=== PATIENT | female | born 1960 | race Caucasian/White ===

== ENCOUNTER 2019-08-27 10:59 | Emergency (ER) | payer OTHER ==
[2019-08-27] MEDS ORDERED: MAGNE/ALUM HYDROXD 30 ML UCUP ONE (11:29)
[2019-08-27] MEDS ORDERED: LIDOCAINE VISCOUS 2% SOLN 15 ML UDC ONE (11:30)
[2019-08-27] MEDS ORDERED: FAMOTIDINE 20 MG/2 ML VIAL IV ONE (11:30)
[2019-08-27 11:58] LABS: Absolute Lymphocytes (CBC) 1.4 K/uL (0.7-4.9); Basophils % 0.8 % (0-1.3); Hematocrit 43.5 % (36.0-45.0); Lymphocytes % 22.4 % (15.3-44.8); RBC Red Blood Cell Count 4.56 M/uL (3.86-4.86)
--- NOTE | 2019-08-27 12:05 | RAD REPORT ---
EXAM DESCRIPTION: CTAbdomen Pelvis W Contrast - 08/27/2019 11:55 am CLINICAL HISTORY: Abdominal pain. NAUSEA COMPARISON: No comparisons TECHNIQUE: Biphasic CT imaging of the abdomen and pelvis was performed with 100 ml non-ionic IV cont rast. All CT scans are performed using dose optimization technique as appropriate and may include automated exposure control or mA/KV adjustment according to patient size. FINDINGS: The lung bases are clear.Small hiatal hernia. The liver, spleen, pancreas, adrenal glands and kidneys are within normal limits. No bowel obstruction, free air, free fluid or abscess. Mild sigmoid diverticulosis coli without diver ticulitis. The appendix is normal. No evidence of significant lymphadenopathy. No suspicious bony findings. IMPRESSION: Small hiatal hernia. Sigmoid diverticulosis without diverticulitis.
[2019-08-27 12:13] LABS: Urine Blood TRACE (NEG); Urine Glucose NEGATIVE (NEG); Urine Protein NEGATIVE (NEG); Urine Specific Gravity 1.025 (1.005-1.030); Urine pH 7.5 (5.0-7.0)
[2019-08-27 12:16] LABS: Urine Bacteria <20 /HPF (<20); Urine Culture Reflex Order NOT NEEDED; Urine RBC <5 /HPF (NONE SEEN)
[2019-08-27 12:17] LABS: Bilirubin Direct 0.1 mg/dL (0-0.2); Bilirubin Total 0.6 mg/dL (0.2-1.0); Protein, Total 7.7 g/dL (6.4-8.2)
--- NOTE | 2019-08-27 12:33 | ER ---
Nurse's Notes [facility] Name: Marely Choi Age: 58 yrs Sex: Female : 1960 Arrival Date: 08/27/2019 Time: 11:05 Bed 8 Private MD: Al Nelson H Diagnosis: Gastritis, unspecified, without bleeding Presentation: 08/26 11:18 Chief complaint: Patient states: Epigastric burning and nausea, denies fever,vomiting, ph or diarrhea. Coronavirus screen: Patient denies a cough. Patient denies shortness of breath or difficulty breathing. Patient denies measured and/or subjective temperature greater than 100.4F prior to today's visit. Patient denies travel on a cruise ship or to a country the [facility] currently lists as an affected area. Patient denies contact with known and/or suspected case of COVID-19. Ebola Screen: No symptoms or risks identified at this time. Initial Sepsis Screen: Does the patient meet any 2 criteria? No. Patient's initial sepsis screen is negative. Does the patient have a suspected source of infection? No. Patient's initial sepsis screen is negative. Risk Assessment: Do you want to hurt yourself or someone else? Patient reports no desire to harm self or others. Onset of symptoms was August 27, 2019. 11:18 Method Of Arrival: Ambulatory ph 11:18 Acuity: MER 3 ph Historical: - Allergies: 11:23 No Known Allergies; ph - Home Meds: 11:23 hydroxychloroquine oral oral [Active]; Xeljanz oral oral [Active]; methotrexate sodium ph Oral [Active]; meloxicam oral oral [Active]; - PMHx: 11:23 Rheumatoid Arthritis; ph - PSHx: 11:23 None; ph - Immunization history:: Adult Immunizations unknown. - Social history:: Smoking status: Patient reports the use of cigarette tobacco products, smokes one-half pack cigarettes per day. - Family history:: not pertinent. - Hospitalizations: : No recent hospitalization is reported. Screenin:25 Abuse screen: Denies threats or abuse. Denies injuries from another. Nutritional ph screening: No deficits noted. Tuberculosis screening: No symptoms or risk factors identified. Fall Risk None identified. Assessment: 11:30 General: Appears in no apparent distress. comfortable, Behavior is calm, cooperative, em appropriate for age, Denies fever. Pain: Complains of pain in epigastric area Quality of pain is described as burning. Neuro: Level of Consciousness is awake, alert, obeys commands, Oriented to person, place, time, situation, Appropriate for age. Cardiovascular: Capillary refill < 3 seconds Patient's skin is warm and dry. Respiratory: Airway is patent Respiratory effort is even, unlabored, Respiratory pattern is regular, symmetrical. GI: Abdomen is flat, Bowel sounds present X 4 quads. Reports nausea, Patient currently denies vomiting. : Denies burning with urination. Derm: Skin is intact, is healthy with good turgor, Skin is pink, warm \T\ dry. Musculoskeletal: Capillary refill < 3 seconds, Range of motion: intact in all extremities. 12:40 Reassessment: Patient appears in no apparent distress at this time. Patient and/or em family updated on plan of care and expected duration. Pain level reassessed. Patient is alert, oriented x 3, equal unlabored respirations, skin warm/dry/pink. Vital Signs: 11:18 BP 116 / 80; Pulse 76; Resp 18; Temp 97.2; Pulse Ox 100% on R/A; Weight 97.98 kg; ph Height 5 ft. 6 in. (167.64 cm); 11:18 Body Mass Index 34.86 (97.98 kg, 167.64 cm) ph ED Course: 11:05 Patient arrived in ED. mr 11:05 Al Nelson DO is Private Physician. mr 11:08 Ab Taylor MD is Attending Physician. rn 11:16 Mark Osborn RN is Primary Nurse. em 11:21 Triage completed. ph 11:24 Arm band placed on Patient placed in an exam room, on a stretcher, on pulse oximetry. ph 11:25 Patient has correct armband on for positive identification. Bed in low position. Call ph light in reach. Side rails up X 1. Pulse ox on. NIBP on. Door closed. Noise minimized. Warm blanket given. Pillow given. 11:33 Urine collected: clean catch specimen, clear. mh5 11:40 Initial lab(s) drawn, by me, sent to lab. Inserted saline lock: 20 gauge in right em antecubital area, using aseptic technique. Blood collected. 11:50 Urine Dipstick--Ancillary (enter results) Sent. [facility] 11:50 Urine Microscopic Only Sent. [facility] 11:55 Abdomen In Process Unspecified. EDMS 12:32 Jey Franco MD is Referral Physician. rn 12:51 EKG done, by ED staff, reviewed by Ab Taylor MD. [facility] 13:11 No provider procedures requiring assistance completed. IV discontinued, intact, em bleeding controlled, No redness/swelling at site. Pressure dressing applied. Administered Medications: 11:42 Drug: Pepcid 20 mg Route: IVP; Site: right antecubital; em 12:40 Follow up: Response: No adverse reaction em 12:00 Drug: GI Cocktail without - (Maalox Suspension 30 ml, Lidocaine Liquid 2 % 15 em ml) Route: PO; 12:40 Follow up: Response: No adverse reaction; Marked relief of symptoms; Pain is decreased em Outcome: 12:33 Discharge ordered by MD. rn 13:11 Discharged to home ambulatory. em 13:11 Condition: good 13:11 Discharge instructions given to patient, Instructed on discharge instructions, follow up and referral plans. medication usage, Demonstrated understanding of instructions, follow-up care, medications, Prescriptions given X 1. 13:12 Patient left the ED. em Signatures: Dispatcher [employer] Bhargavi Peterson Edgar, RN RN em Nieto, Roman, MD MD rn Hall, Patricia, RN RN ph Martinez, Maria [facility]
--- NOTE | 2019-08-27 12:33 | EDPHYS ---
Physician Documentation [facility] Name: Marely Choi Age: 58 yrs Sex: Female : 1960 Arrival Date: 08/27/2019 Time: 11:05 Bed 8 Private MD: Al Nelson H ED Physician Ab Taylor HPI: 08/26 11:18 This 58 yrs old Female presents to ER via Unassigned with complaints of rn Nausea, abd burning. 11:23 The patient presents to the emergency department with nausea, abdominal pain, of the rn epigastric area. Onset: The symptoms/episode began/occurred 1 week(s) ago. Possible causes: unknown. The symptoms are aggravated by nothing. The symptoms are alleviated by nothing. Severity of symptoms: At their worst the symptoms were mild in the emergency department the symptoms are unchanged. The patient has experienced similar episodes in the past. Reports hx of acid reflux and "stomach issues", worse over last week, feeling like burning in upper abdomen, no previous gallbladder problem. No chest pain/sob. Also reports mild diarrhea and burning with urination. . Historical: - Allergies: 11:23 No Known Allergies; ph - Home Meds: 11:23 hydroxychloroquine oral oral [Active]; Xeljanz oral oral [Active]; methotrexate sodium ph Oral [Active]; meloxicam oral oral [Active]; - PMHx: 11:23 Rheumatoid Arthritis; ph - PSHx: 11:23 None; ph - Immunization history:: Adult Immunizations unknown. - Social history:: Smoking status: Patient reports the use of cigarette tobacco products, smokes one-half pack cigarettes per day. - Family history:: not pertinent. - Hospitalizations: : No recent hospitalization is reported. ROS: 11:23 Constitutional: Negative for fever, chills, and weight loss, Eyes: Negative for injury, rn pain, redness, and discharge, Cardiovascular: Negative for chest pain, palpitations, and edema, Respiratory: Negative for shortness of breath, cough, wheezing, and pleuritic chest pain, Abdomen/GI: Negative for vomiting, diarrhea, and constipation, MS/Extremity: Negative for injury and deformity, Skin: Negative for injury, rash, and discoloration, Neuro: Negative for headache, weakness, numbness, tingling, and seizure. Exam: 11:23 Constitutional: This is a well developed, well nourished patient who is awake, alert, rn and in no acute distress. Ambulatory to room without difficulty or distress. Head/Face: Normocephalic, atraumatic. Cardiovascular: Regular rate and rhythm. No pulse deficits. Respiratory: No increased work of breathing, no retractions or nasal flaring. Abdomen/GI: soft, non-tender, neg jimenez Skin: Warm, dry with normal turgor. Normal color with no rashes, no lesions, and no evidence of cellulitis. MS/ Extremity: Pulses equal, no cyanosis. Neurovascular intact. Full, normal range of motion. Equal circumference. Neuro: Awake and alert, GCS 15, oriented to person, place, time, and situation. Cerebellar exam normal. Normal gait. 12:47 ECG was reviewed by the Attending Physician. rn Vital Signs: 11:18 BP 116 / 80; Pulse 76; Resp 18; Temp 97.2; Pulse Ox 100% on R/A; Weight 97.98 kg; ph Height 5 ft. 6 in. (167.64 cm); 11:18 Body Mass Index 34.86 (97.98 kg, 167.64 cm) ph MDM: 11:08 Patient medically screened. rn 12:31 Differential diagnosis: Nonspecific abd pain, gastritis, pancreatitis, viral rn gastroenteritis, gastroenteritis. Data reviewed: vital signs, nurses notes, lab test result(s), radiologic studies, CT scan, and as a result, I will discharge patient. Counseling: I had a detailed discussion with the patient and/or guardian regarding: the historical points, exam findings, and any diagnostic results supporting the discharge/admit diagnosis, lab results, radiology results, the need for outpatient follow up, to return to the emergency department if symptoms worsen or persist or if there are any questions or concerns that arise at home. Response to treatment: the patient's symptoms have markedly improved after treatment, and as a result, I will discharge patient. Special discussion: Based on the patient's Hx, exam, and Dx evaluation, there is no indication for emergent surgery or inpatient Tx. It is understood by the patient/guardian that if the Sx's persist or worsen they need to return immediately for re-evaluation. I discussed with the patient/guardian in detail that at this point there is no indication for admission to the hospital. It is understood, however, that if the symptoms persist or worsen the patient needs to return immediately for re-evaluation. ED course: Symptoms most consistent with gastritis/esophagitis, improved with GI cocktail, neg ct abdomen, will dc home with antacid medication and GI f/u. . 08/26 11:18 Order name: Basic Metabolic Panel; Complete Time: 12:31 rn 08/26 11:18 Order name: CBC with Diff; Complete Time: 12:08 rn 08/26 11:18 Order name: Hepatic Function; Complete Time: 12:31 rn 08/26 11:18 Order name: Lipase; Complete Time: 12:31 rn 08/26 11:18 Order name: Urine Microscopic Only; Complete Time: 12:31 rn 08/26 11:42 Order name: Urine Dipstick--Ancillary (enter results); Complete Time: 12:31 bd 08/26 11:18 Order name: IV Saline Lock; Complete Time: 11:47 rn 08/26 11:18 Order name: Labs collected and sent; Complete Time: 11:47 rn 08/26 11:19 Order name: EKG; Complete Time: 11:39 rn 08/26 11:26 Order name: Abdomen ; Complete Time: 12:08 EDMS 08/26 12:25 Order name: CREATININE WHOLE BLOOD; Complete Time: 12:31 EDVT 08/26 11:18 Order name: Urine Dipstick-Ancillary (obtain specimen); Complete Time: 11:33 rn 08/26 11:19 Order name: EKG - Nurse/Tech; Complete Time: 12:50 rn EC:47 Rate is 60 beats/min. Rhythm is regular. QRS [place] is Normal. [place] interval is normal. QRS rn interval is normal. QT interval is normal. No Q waves. T waves are Normal. No ST changes noted. Clinical impression: Normal ECG. Interpreted by me. Reviewed by me. Administered Medications: 11:42 Drug: Pepcid 20 mg Route: IVP; Site: right antecubital; em 12:40 Follow up: Response: No adverse reaction em 12:00 Drug: GI Cocktail without - (Maalox Suspension 30 ml, Lidocaine Liquid 2 % 15 em ml) Route: PO; 12:40 Follow up: Response: No adverse reaction; Marked relief of symptoms; Pain is decreased em Disposition: 08/27/19 12:33 Discharged to Home. Impression: Gastritis, unspecified, without bleeding. - Condition is Stable. - Discharge Instructions: Gastritis, Adult. - Prescriptions for Protonix 40 mg Oral Tablet - take 1 tablet by ORAL route once daily; 30 tablet. - Medication Reconciliation Form, Thank You Letter, Antibiotic Education, Prescription Opioid Use form. - Follow up: Jey Franco MD; When: As needed; Reason: Recheck today's complaints, Re-evaluation by your physician. - Problem is an ongoing problem. - Symptoms have improved. Signatures: Dispatcher [employer] [facility] Mark Osborn RN RN Ab Richardson MD MD rn Hall, Patricia, RN RN ph Corrections: (The following items were deleted from the chart) 11:42 11:38 Abdomen Pelvis W Con+CT.RAD.BRZ ordered. [facility] 13:12 12:33 08/27/2019 12:33 Discharged to Home. Impression: Gastritis, unspecified, without em bleeding. Condition is Stable. Forms are Medication Reconciliation Form, Thank You Letter, Antibiotic Education, Prescription Opioid Use. Follow up: Jey Franco; When: As needed; Reason: Recheck today's complaints, Re-evaluation by your physician. Problem is an ongoing problem. Symptoms have improved. rn
[2019-08-27 17:52] VITALS: BP 116/80; TEMP 97.2; O2SAT 100
--- NOTE | 2019-08-28 06:32 | EKG ---
Test Date: 2019-08-27 Test Time: 12:44:55 Physiotherapy Assistant: CHAVA MEASUREMENT RESULTS: Intervals: Rate: 60 MT: 172 QRSD: 96 QT: 414 QTc: 414 [place]: P: 17 MT: 172 QRS: 57 T: 37 INTERPRETIVE STATEMENTS: Normal sinus rhythm Normal ECG No previous ECG available for comparison Electronically Signed On 08-28-19 06:30:44 CDT by Chuck Longoria
== END 2019-08-27 13:12 | disposition home or self-care (01) ==
LOC: ER 10:59
DX: K29.70 Gastritis, unspecified, without bleeding (principal); F17.210 Nicotine dependence, cigarettes, uncomplicated
CPT/HCPCS: 93005; 85025; 80048; 36415; 82565; 80076; 83690; 74177; 96374; 99284; Q9967; 81003; 81015

== ENCOUNTER 2024-04-20 15:19 | Emergency (ER) | payer BC, OTHER ==
--- OUTSIDE RECORDS SUMMARY | 2024-04-20 15:22 | XMS REPORT | Continuity of Care Document ---
Author Name Unknown Address [address] [facility]. [address] [place] [address] [facility] thconnect Address [address] [facility] [place] [address] Care Team Providers Care Fashion Consultant Sales Name Role Phone PCP, PATIENT DOES NOT HAVE A Primary Care Physic toneADOLFO Cardona Attending Clinician Unavailable Ramesh Khalil MD Attending Clinician [phone] RAMESH KHALIL Attending Clinician UnavailRAMESH Bowen Attending Clinician Unavaildanisha e Doctor Unassigned, [place] Attending Clinician U Rhett Gill Attending Clinician Unavailable Rhett Laboy Attending Clinician [phone] Kavitha Garza DO Attending Clinician [phone] KAVITHA GARZA Attending Clinician Unavailab le Payers Payer Name Policy Type Policy Number Effective Date Expirati on Date Source [employer] [id number] 2018 00:00:00 Problems Condition Name Condition Details Condition Category Status Onset Date Resolution Date Last Treatment Date Treating Clinician Comments Source No known active problems No known active problems Disease [facility] Allergies, Adverse Reactions, Alerts Allergy Name Allergy Type Status Severity Reaction(s) Onset Date Inactive Date Treating Clinician Comments Source NO KNOWN ALLERGIE S Drug Class Active [facility] Social History Social Habit Start Date Stop Date Quantity Comments Source Sexual orientation U [facility] Exposure to SARS-CoV-2 (event) 2021-12-03 00:00:00 2021-12-13 09:17:00 Not sure [facility] History of Social function 2021-09-28 00:00:00 2021-09-28 00:00:00 [facility] Sex Ass[birth year] At 1960 00:00:00 1960 00:00:00 [facility] Smoking Status Start Date Stop Date Source Tobacco smoking consumption unknown [facility] Medications Ordered Medication Name Filled Medication Name Start Date Stop Date Current Medication? Ordering Clinician Indication Dosage Frequency Signature (SIG) Comments Components Source amoxicillin -clavulanat e 875-125 mg per tablet 2021-03 00:00: 00 Yes [id number] 1{tbl} Take 1 tablet by mouth every 12 (twelve) hours. [facility] doxycycline hyclate 100 mg capsule 2021-03 00:00: 00 Yes [id number] 100mg Take 1 capsule by mouth in the morning and 1 capsule in the evening. [facility] triamcinolo ne acetonide (KENALOG) injection 40 mg 09-28 20:45: 00 09-28 19:40 :00 No [id number] 40mg [facility] cyclobenzap rine 5 mg tablet 06-08 00:00: 00 Yes 5mg Take 1 tablet by mouth 2 (two) times daily as needed for Muscle Spasms for up to 15 doses. [facility] ibuprofen (MOTRIN IB) 200 mg tablet 06-08 00:00: 00 Yes 400mg Take 2 tablets by mouth every 6 (six) hours as needed for Pain (scale 1-3) for up to 30 doses. [facility] Vital Signs Vital Name Observation Time Observation Value Comments S breannemacy Body height 2023-05-23 19:20:00 170.2 cm [facility] Body weight 2023-05-23 19:20:00 107.502 kg [facility] BMI 2023-05-23 19:20:00 37.12 kg/m2 [facility] Oxygen saturation in Arterial blood by Pulse oximetry 2021-12-13 13:08:00 98 /min [facility] Systolic blood pressure 2021-12-13 13:08:00 143 mm[Hg] [facility] Diastolic blood pressure 2021-12-13 13:08:00 96 mm[Hg] [facility] Heart rate 2021-12-13 13:08:00 85 /min [facility] Body temperature 2021-12-13 13:08:00 36.72 Marva [facility] Respiratory rate 2021-12-13 13:08:00 18 /min [facility] Body weight 2021-12-13 13:08:00 107.049 kg [facility] BMI 2021-12-13 13:08:00 38.09 kg/m2 [facility] Systolic blood pressure 2021-09-28 19:03:00 122 mm[Hg] [facility] Diastolic blood pressure 2021-09-28 19:03:00 82 mm[Hg] [facility] Heart rate 2021-09-28 19:03:00 88 /min [facility] Body height 2021-09-28 19:03:00 167.6 cm [facility] Body weight 2021-09-28 19:03:00 104.191 kg [facility] BMI 2021-09-28 19:03:00 37.07 kg/m2 [facility] Oxygen saturation in Arterial blood by Pulse oximetry 2021-09-28 19:03:00 98 /min [facility] Procedures Procedure Date / Time Performed Performing Clinicia n Source ASSIGNMENT OF BENEFITS 2023-05-23 19:16:52 Docto r Unassigned, [place] [facility] EXTERNAL PROVIDER RECORDS 2023-05-15 05:01:00 Doctor Unassigned, [place] [facility] POCT GLUCOSE(AGE >30DAYS) 2021-12-13 14:16:00 Rhett Adams [facility] CONSENT/REFUSAL FOR DIAGNOSIS AND TREATMENT 2021-12-13 12:59:35 Doctor Unassigned, [place] [facility] Encounters Start Date/Time End Date/Time Encounter Type Admission Type Attending Clinicians Care Facility Care Department Encounter ID Source 2021-09-13 16:56:09 Outpatient ADOLFO CEBALLOS [facility] [id number] [facility] 2021-08-25 08:32:52 Outpatient ADOLFO CEBALLOS [facility] [id number] [facility] 2023-05-25 00:00:00 2023-05-25 00:00:00 Telephone [facility]amesh Khalil [facility] [id number] 350.1.13.10 4.2.7.2.686 [id number] [facility] 2023-05-24 00:00:00 2023-05-24 00:00:00 Telephone Ramesh Khalil [facility] [id number] 350.1.13.10 4.2.7.2.686 [id number] [facility] 2023-05-23 15:15:00 2023-05-23 15:15:00 Office Visit KhalilStarlaquita Shea [facility] [id number] 350.1.13.10 4.2.7.2.686 [id number] [facility] 2023-05-23 15:15:00 2023-05-23 14:58:05 Outpatient R RAMESH KHALIL [facility] [id number] [facility] 2023-05-23 00:00:00 2023-05-23 00:00:00 Orders Only Doctor Unassigned, [place] [facility] 1.840.114 350.1.13.10 4.2.7.2.686 [id number] [facility] 2023-05-16 09:35:37 2023-05-16 09:35:37 Outpatient [facility] [id number] [facility] 2023-05-16 00:00:00 2023-05-16 00:00:00 Telephone Ramesh Khalil [facility] 1..840.114 350.1.13.10 4.2.7.2.686 [id number] [facility] 2023-05-15 00:00:00 2023-05-15 00:00:00 Orders Only Doctor Unassigned, [place] [facility] 1.2840.114 350.1.13.10 4.2.7.2.686 [id number] [facility] 2022-11-28 08:00:29 2022-11-28 08:00:29 Outpatient [facility] [id number] [facility] 2021-12-13 08:14:00 2021-12-13 10:43:00 Emergency X Rhett [facility] ERT [id number] [facility] 2021-12-13 08:14:00 2021-12-13 10:43:00 Emergency Rhett Adams[facility] 1.840.114 350.1.13.10 4.2.7.2.686 [id number] [facility] 2021-10-03 15:45:00 2021-10-03 15:45:00 Outpatient R KHALIL RAMESH [facility] [id number] [facility] 2021-09-28 14:30:00 2021-09-28 15:26:47 Outpatient R KHALIL RAMESH [facility] [id number] [facility] 2021-09-28 14:30:00 2021-09-28 15:26:47 Office Visit Ramesh Khalil [facility] 1.2.840.114 350.1.13.10 4.2.7.2.686 [id number] [facility] 2021-01-24 00:00:00 2021-01-24 00:00:00 Orders Only Doctor Unassigned, [place] [facility] 1.2840.114 350.1.13.10 4.2.7.2.686 [id number] [facility] 2020-12-09 02:22:00 2020-12-09 05:01:00 Emergency Kavitha Garza [facility] 1.840.114 350.1.13.10 4.2.7.2.686 [id number] [facility] 2020-12-09 02:22:00 2020-12-09 02:22:00 Emergency X KAVITHA GARZA [facility] ERT [id number] [facility] Results Test Description Test Time Test Comments Results Result Co mments Source COMPREHENSIVE METABOLIC [id number] 05:06:53* Test Item Value Reference Range Interpretation Comme nts GLUCOSE (test code = 2217) 110 MG/DL 70-99 H BUN (test code = 2208) 9 MG/DL 8-23 CREATININE (test code = 2214) 0.71 MG/DL 0.60-1.30 eGFR (2020 CKD-EPI) (test code = 63373) 97 ML/MIN/1.73 >60 CALC BUN/CREAT (test code = 2235) 13 RATIO 6-28 SODIUM (test code = 2231) 138 MEQ/L 133-146 POTASSIUM (test code = 2228) 4.6 MEQ/L 3.5-5.4 CHLORIDE (test code = 2215) 104 MEQ/L 95-107 CARBON DIOXIDE (test code = 2206) 25 MEQ/L 19-31 CALCIUM (test code = 2209) 9.0 MG/DL 8.5-10.5 PROTEIN, TOTAL (test code = 2229) 6.3 G/DL 6.1-8.3 ALBUMIN (test code = 2201) 4.2 G/DL 3.5-5.2 CALC GLOBULIN (test code = 2240) 2.1 G/DL 1.9-3.7 CALC A/G RATIO (test code = 2234) 2.0 RATIO 1.0-2.6 BILIRUBIN, TOTAL (test code = 2207) 0.7 MG/DL <=1.2 ALKALINE PHOSPHATASE (test code = 2204) 78 U/L 40-136 AST (test code = 2218) 29 U/L 9-40 ALT (test code = 2219) 28 U/L 5-40 UNLESS OTHERWISE INDICATED, ALL TESTING PERFORMED AT [facility] [address] [place] [id number] CELL TUBER MACHINE: DESTIN SORIANO M.D. CLIA NUMBER [id number] [facility] [place]. [id number] HEMOGLOBIN [id number] 04:29:46* Test Item Value Reference Range Interpretation Comme nts HEMOGLOBIN A1c (test code = 24315) 5.2 % 4.2-5.6 POCT GLUCOSE(AGE >30DAYS)2021-12-13 14:16:00* Test Item Value Reference Range Interpretation Comme nts POCT Glu (age>30days) (test code = 3342) 108 mg/dL 70-110 Lab Interpretation (test cod e = [id number]) Normal [facility] [id number] 14:26:01Name: Marely : 1960 Sex: F - SCR MAMM BILATERAL ALLYSON CAD DIGITALBILATERAL DIGITAL SCREENING MAMMOGRAM 3D/2D WITH CAD: 01/18/2021LINICAL: Asymptomatic. Digital breast tomosynthesis was performed in addition to routine CC and MLO views. Current mammographic images wereevaluated by [employer] CAD (computer-aided detection) software. No prior exams were available for comparison. The tissue of both breasts is predominantly fatty. There are benign calcifications in both breasts. No suspicious mass, architectural distortion, malignant type calcification, orlymph node abnormality detected. IMPRESSION: BENIGNThere is no mammographic evidence of malignancy. Resume annual screening mammography in one year. Jimmie Sweet/jerica:02/02/2021 14:26:01 Wheel Setter: Ana Marques MM, [facility] Mammographyletter sent: BIRADS 1-2 Normal Mammogram BI-RADS: 2 Benign Notes Date/Time Note Provider Source 2023-05-25 12:20:12 Received External MRI Results from [facility]. Scanned and uploaded into patient's chart. Placed in Provider box for Review. Bettina Olmos [facility] 2023-05-25 09:22:14 Tried contacting patient to see what was needed on her note;restrictions or not ? Received automated message asking for reason for call, then the phone just repeatedly rang. Unable to leave Shonda Kruse MA 05/25/2023 9:23 AM Shonda Kruse MA [facility] 2023-05-24 12:03:48 Patient states she was seen yesterday and she is needing a note to return back to work. She is requesting it be sent to her job by fax. Fax number [phone], Attn: Zach Rose Carlos [facility]
--- NOTE | 2024-04-20 16:17 | RAD REPORT ---
Procedure: Chest Single View HISTORY: Chest pain COMPARISON: none FINDINGS: The lungs appear clear of acute infiltrate. No significant pleural effusion noted. The heart is normal size. IMPRESSION: No acute abnormality is displayed.
--- NOTE | 2024-04-20 16:18 | RAD REPORT ---
Exam:Knee Right 3 View HISTORY: Right knee pain FINDINGS: No fracture or dislocation seen If the patient continues to have symptoms to suggest an occult fracture, ligamentous or meniscal inju ry then MRI would be recommended
[2024-04-20] MEDS ORDERED: ACETAMINOPHEN 500 MG TAB ONE (16:31)
[2024-04-20] MEDS ORDERED: KETOROLAC 30 MG/ML INJ ONE (16:31)
[2024-04-20] MEDS ORDERED: LIDOCAINE 4% PATCH ONE (16:31)
--- NOTE | 2024-04-20 16:49 | ER ---
Nurse's Notes [facility] Name: Marely Choi Age: 63 yrs Sex: Female : 1960 Arrival Date: 04/20/2024 Time: 15:19 Bed 9 Private MD: Diagnosis: Abrasion, right knee;Sprain of ribs Presentation: 04/20 15:29 Chief complaint: Patient states: tripped and fell over a curb, fell forward onto wa1 concrete. c/o pain to right breast, right ribs and right knee. Pain 3/10. Coronavirus screen: Vaccine status: Patient reports receiving the 2nd dose of the covid vaccine. Ebola Screen: No symptoms or risks identified at this time. Initial Sepsis Screen: Does the patient meet any 2 criteria? No. Patient's initial sepsis screen is negative. Does the patient have a suspected source of infection? No. Patient's initial sepsis screen is negative. Risk Assessment: Do you want to hurt yourself or someone else? Patient reports no desire to harm self or others. Onset of symptoms was April 20, 2024 at 14:45. 15:29 Method Of Arrival: Ambulatory [facility] 15:29 Acuity: MER 4 wa1 Triage Assessment: 15:32 General: Appears in no apparent distress. obese, well groomed, well developed, Behavior wa1 is calm, cooperative, appropriate for age. Pain: Complains of pain in right lateral anterior chest, right breast and right leg Pain does not radiate. Pain currently is 3 out of 10 on a pain scale. Quality of pain is described as tender, Pain began suddenly, 1 hour ago. Is continuous. EENT: No signs and/or symptoms were reported regarding the EENT system. Neuro: Level of Consciousness is awake, alert, obeys commands, Oriented to person, place, time, situation, Appropriate for age. Cardiovascular: Patient's skin is warm and dry. Respiratory: Airway is patent Respiratory effort is even, unlabored, Respiratory pattern is regular, symmetrical. GI: No signs and/or symptoms were reported involving the gastrointestinal system. : No signs and/or symptoms were reported regarding the genitourinary system. Derm: Skin is intact, is healthy with good turgor, Skin is pink, warm \T\ dry. Musculoskeletal: Reports pain in right lateral anterior chest and right breast. Injury Description: trip and fall over a curb, falling forward. pain to right breast, right rib and right knee. Historical: - Allergies: 15:30 No Known Allergies; me1 - PMHx: 15:30 Rheumatoid Arthritis; Osteoarthritis; me1 - PSHx: 15:30 None; me1 - Immunization history:: Adult Immunizations up to date. - Infectious Disease History:: Denies. - Social history:: Smoking status: Patient reports the use of cigarette tobacco products, smokes one pack cigarettes per day. Screenin:10 [facility] ED Fall Risk Assessment (Adult) History of falling in the last 3 months, jb4 including since admission Yes- single mechanical fall (1 pt) Confusion or Disorientation No (0 pts) Intoxicated or Sedated No (0 pts) Impaired Gait No (0 pts) Mobility Assist Device Used No (0 pt) Altered Elimination No (0 pt) Score/Fall Risk Level 0 - 2 = Low Risk Oriented to surroundings, Maintained a safe environment. Abuse screen: Denies threats or abuse. Nutritional screening: No deficits noted. Tuberculosis screening: No symptoms or risk factors identified. Assessment: 16:21 Reassessment: Patient appears in no apparent distress at this time. Patient and/or jb4 family updated on plan of care and expected duration. Pain level reassessed. Patient is alert, oriented x 3, equal unlabored respirations, skin warm/dry/pink. 17:10 Reassessment: Patient appears in no apparent distress at this time. Patient and/or jb4 family updated on plan of care and expected duration. Pain level reassessed. Patient is alert, oriented x 3, equal unlabored respirations, skin warm/dry/pink. Vital Signs: 15:29 BP 120 / 82; Pulse 77; Resp 17; Temp 97.7; Pulse Ox 97% ; Weight 107.05 kg; Height 5 me1 ft. 6 in. ; Pain 3/10; 15:29 Body Mass Index 38.09 (107.05 kg, 167.64 cm) me1 15:29 Pain Scale: Adult wa1 ED Course: 15:25 Patient arrived in ED. ra3 15:26 Sourav Siddiqi MD is Attending Physician. ec2 15:30 Triage completed. me1 15:30 Arm band placed on Patient placed in waiting room. me1 16:00 CXR XRAY In Process Unspecified. EDMS 16:00 Knee Right 3 View XRAY In Process Unspecified. EDMS 17:10 Patient has correct armband on for positive identification. Call light in reach. Side jb4 rails up X 1. Provided Education on: discharge instructions. 17:10 No provider procedures requiring assistance completed. Patient did not have IV access jb4 during this emergency room visit. Administered Medications: 16:46 Drug: Lidoderm Topical Patch 5 % (700 mg/patch) 1 patches Topical once; leave on for 12 jb4 hours; cover most painful area; may cut into smaller pieces Route: Topical; Site: affected area; 17:31 Follow up: Response: No adverse reaction; Marked relief of symptoms jb4 16:46 Drug: Ketorolac IM 30 mg IM once Route: IM; Site: right deltoid; jb4 17:31 Follow up: Response: No adverse reaction; Marked relief of symptoms jb4 16:46 Drug: Acetaminophen PO 1000 mg PO once Route: PO; jb4 17:31 Follow up: Response: No adverse reaction; Marked relief of symptoms jb4 Medication: 17:10 VIS not applicable for this client. jb4 Outcome: 16:49 Discharge ordered by . ec2 17:10 Discharged to home ambulatory, jb4 17:10 Condition: stable 17:10 Discharge instructions given to patient, Instructed on discharge instructions, follow up and referral plans. no drinking with medication, no driving heavy equipment, medication usage, Demonstrated understanding of instructions, follow-up care, medications, Prescriptions given X 1, 17:31 Patient left the ED. jb4 Signatures: Dispatcher [employer] EDMark Jade RN RN jb4 Sejal Paulson RN RN me1 Sourav Siddiqi MD MD ec2 Angeline Navarrete ra3 Corrections: (The following items were deleted from the chart) 17:31 17:10 [facility] ED Fall Risk Assessment (Adult) History of falling in the last 3 months, jb4 including since admission No falls in past 3 months (0 pts) Confusion or Disorientation No (0 pts) Intoxicated or Sedated No (0 pts) Impaired Gait No (0 pts) Mobility Assist Device Used No (0 pt) Altered Elimination No (0 pt) Score/Fall Risk Level 0 - 2 = Low Risk Oriented to surroundings, Maintained a safe environment, jb4
--- NOTE | 2024-04-20 16:49 | EDPHYS ---
Physician Documentation [facility] Name: Marely Choi Age: 63 yrs Sex: Female : 1960 Arrival Date: 04/20/2024 Time: 15:19 Bed 9 Private MD: ED Physician Sourav Siddiqi HPI: 04/20 16:14 This 63 yrs old Female presents to ER via Ambulatory with complaints of Fall Injury. ec2 16:14 Patient arrives today for evaluation after a fall. Patient reports that she was walking ec2 subsequently tripped and fell and landed on her right chest. No LOC, no head strike, no blood thinners.. Historical: - Allergies: 15:30 No Known Allergies; me1 - PMHx: 15:30 Rheumatoid Arthritis; Osteoarthritis; me1 - PSHx: 15:30 None; me1 - Immunization history:: Adult Immunizations up to date. - Infectious Disease History:: Denies. - Social history:: Smoking status: Patient reports the use of cigarette tobacco products, smokes one pack cigarettes per day. ROS: 16:14 Constitutional: as per hpi ec2 Exam: 16:14 Constitutional: GEN: NAD Head: atraumatic Eyes: EOMI Ears: External ears are ec2 normal. CV: regular rate LUNGS: no respiratory distress ABD: non-distended SKIN: no evidence of rashes MSK: no evidence of trauma, reproducible upper chest wall TTP without deformities or crepitus. Right knee with TTP, abrasion noted. Vital Signs: 15:29 BP 120 / 82; Pulse 77; Resp 17; Temp 97.7; Pulse Ox 97% ; Weight 107.05 kg; Height 5 me1 ft. 6 in. ; Pain 3/10; 15:29 Body Mass Index 38.09 (107.05 kg, 167.64 cm) me1 15:29 Pain Scale: Adult me1 MDM: 15:31 Medical Screening Exam initiated ec2 16:15 Data reviewed: vital signs, nurses notes. ED course: Patient arrives today for chest ec2 wall pain and right knee pain. Emanation yields MSK findings as above. Will obtain radiograph of the chest and knee. Suspect contusion, lower suspicion for fracture or dislocation. 16:48 ED course: Negative radiographs. Will discharge home. Presentation consistent with ec2 contusion. Return precautions given.. 04/20 15:36 Order name: CXR XRAY; Complete Time: 16:23 ec2 04/20 15:36 Order name: Knee Right 3 View XRAY; Complete Time: 16:23 ec2 Administered Medications: 16:46 Drug: Lidoderm Topical Patch 5 % (700 mg/patch) 1 patches Topical once; leave on for 12 jb4 hours; cover most painful area; may cut into smaller pieces Route: Topical; Site: affected area; 17:31 Follow up: Response: No adverse reaction; Marked relief of symptoms jb4 16:46 Drug: Ketorolac IM 30 mg IM once Route: IM; Site: right deltoid; jb4 17:31 Follow up: Response: No adverse reaction; Marked relief of symptoms jb4 16:46 Drug: Acetaminophen PO 1000 mg PO once Route: PO; jb4 17:31 Follow up: Response: No adverse reaction; Marked relief of symptoms jb4 Disposition Summary: 04/20/24 16:49 Discharge Ordered Notes: Location: Home ec2 Condition: Stable ec2 Diagnosis - Abrasion, right knee ec2 - Sprain of ribs ec2 Followup: ec2 - With: Private Physician - When: - Reason: Re-evaluation by your physician Discharge Instructions: - Discharge Summary Sheet ec2 - Rib Contusion ec2 Forms: - Medication Reconciliation Form ec2 - Antibiotic Education ec2 - Prescription Opioid Use ec2 - Patient Portal Instructions ec2 - Leadership Thank You Letter ec2 Prescriptions: - methocarbamol 500 mg Oral tablet - take 1 tablet ORAL route 4 times per day; 20 tablet; Refills: 0, Product ec2 Selection Permitted Signatures: Dispatcher [employer] Mark Washington RN RN jb4 Sejal Paulson RN RN me1 Sourav Siddiqi MD MD ec2
[2024-04-20 17:36] VITALS: BP 120/82; TEMP 97.7; O2SAT 97
== END 2024-04-20 17:31 | disposition home or self-care (01) ==
LOC: ER 15:19
DX: S23.41XA Sprain of ribs, initial encounter (principal); S80.211A Abrasion, right knee, initial encounter; W01.0XXA Fall on same level from slipping, tripping and stumbling without subsequent striking against object, initial encounter; F17.210 Nicotine dependence, cigarettes, uncomplicated
CPT/HCPCS: 71045; 73562; J2003; 96372; 99284

== ENCOUNTER 2024-04-24 03:09 | Emergency (ER) | payer BC ==
--- OUTSIDE RECORDS SUMMARY | 2024-04-24 03:12 | XMS REPORT | Continuity of Care Document ---
Author Name Unknown Address [address] [facility] [place] [address] [facility] thconnect Address [address] [facility] [place] [address] Care Team Providers Care Clay Shop Supervisor Name Role Phone PCP, PATIENT DOES NOT HAVE A Primary Care Physic ADOLFO Painting Attending Clinician Unavailable Ramesh Khalil MD Attending Clinician [phone] RAMESH KHALIL Attending Clinician UnavailRAMESH Bowen Attending Clinician Unavaildanisha e Doctor Unassigned, [place] Attending Clinician U Rhett Gill Attending Clinician Unavailable Rhett Laboy Attending Clinician [phone] Kavitha Garza DO Attending Clinician [phone] KAVITHA GARZA Attending Clinician Unavailab le Payers Payer Name Policy Type Policy Number Effective Date Expirati on Date Source [employer] [id number] 2018 00:00:00 Problems Condition Name Condition Details Condition Category Status Onset Date Resolution Date Last Treatment Date Treating Clinician Comments Source No known active problems No known active problems Disease [facility] Allergies, Adverse Reactions, Alerts Allergy Name Allergy Type Status Severity Reaction(s) Onset Date Inactive Date Treating Clinician Comments Source NO KNOWN ALLERGIE S Drug Class Active [facility] Social History Social Habit Start Date Stop Date Quantity Comments Source Sexual orientation [facility] Exposure to SARS-CoV-2 (event) 2021-12-03 00:00:00 2021-12-13 09:17:[address] [facility] History of Social function 2021-09-28 00:00:00 2021-09-28 00:00:[address] [facility] Sex Assigned At 1960 00:00:00 1960 00:00:[address] [facility] Smoking Status Start Date Stop Date Source Tobacco smoking consumption unknown [facility] Medications Ordered Medication Name Filled Medication Name Start Date Stop Date Current Medication? Ordering Clinician Indication Dosage Frequency Signature (SIG) Comments Components Source amoxicillin -clavulanat e 875-125 mg per tablet 2021-03 00:00: 00 Yes [id number] 1{tbl} Take 1 tablet by mouth every 12 (twelve) hours. [facility] doxycycline hyclate 100 mg capsule 2021-03 00:00: 00 Yes [id number] 100mg Take 1 capsule by mouth in the morning and 1 capsule in the evening. [facility] triamcinolo ne acetonide (KENALOG) injection 40 mg 09-28 20:45: 00 09-28 19:40 :00 No [id number] 40mg [facility] cyclobenzap rine 5 mg tablet 06-08 00:00: 00 Yes 5mg Take 1 tablet by mouth 2 (two) times daily as needed for Muscle Spasms for up to 15 doses. [facility] ibuprofen (MOTRIN IB) 200 mg tablet 06-08 00:00: 00 Yes 400mg Take 2 tablets by mouth every 6 (six) hours as needed for Pain (scale 1-3) for up to 30 doses. [facility] Vital Signs Vital Name Observation Time Observation Value Comments S breannemacy Body height 2023-05-23 19:20:00 170.2 cm [facility] Body weight 2023-05-23 19:20:00 107.502 kg [facility] BMI 2023-05-23 19:20:00 37.12 kg/m2 [facility] Oxygen saturation in Arterial blood by Pulse oximetry 2021-12-13 13:08:00 98 /min [facility] Systolic blood pressure 2021-12-13 13:08:00 143 mm[Hg] [facility] Diastolic blood pressure 2021-12-13 13:08:00 96 mm[Hg] [facility] Heart rate 2021-12-13 13:08:00 85 /min [facility] Body temperature 2021-12-13 13:08:[address] [facility] Respiratory rate 2021-12-13 13:08:00 18 /min [facility] Body weight 2021-12-13 13:08:00 107.049 kg [facility] BMI 2021-12-13 13:08:00 38.09 kg/m2 [facility] Systolic blood pressure 2021-09-28 19:03:00 122 mm[Hg] [facility] Diastolic blood pressure 2021-09-28 19:03:00 82 mm[Hg] [facility] Heart rate 2021-09-28 19:03:00 88 /min [facility] Body height 2021-09-28 19:03:00 167.6 cm [facility] Body weight 2021-09-28 19:03:00 104.191 kg [facility] BMI 2021-09-28 19:03:00 37.07 kg/m2 [facility] Oxygen saturation in Arterial blood by Pulse oximetry 2021-09-28 19:03:00 98 /min [facility] Procedures Procedure Date / Time Performed Performing Clinicia n Source ASSIGNMENT OF BENEFITS 2023-05-23 19:16:52 Docto r Unassigned, [place] [facility] EXTERNAL PROVIDER RECORDS 2023-05-15 05:01:00 Doctor Unassigned, [place] [facility] POCT GLUCOSE(AGE >30DAYS) 2021-12-13 14:16:[address] [facility] CONSENT/REFUSAL FOR DIAGNOSIS AND TREATMENT 2021-12-13 12:59:35 Doctor Unassigned, [place] [facility] Encounters Start Date/Time End Date/Time Encounter Type Admission Type Attending Clinicians Care Facility Care Department Encounter ID Source 2021-09-13 16:56:09 Outpatient ADOLFO CEBALLOS [facility] [id number] [facility] 2021-08-25 08:32:52 Outpatient ADOLFO CEBALLOS [facility] [id number] [facility] 2023-05-25 00:00:00 2023-05-25 00:00:00 Telephone [facility]amesh Khalil [facility] [id number] [id number] [id number] [facility] 2023-05-24 00:00:00 2023-05-24 00:00:00 Telephone Ramesh Khalil [facility] [id number] [id number] [id number] [id number] [facility] 2023-05-23 15:15:00 2023-05-23 15:15:00 Office Visit KhalilStarlaquita Shea [facility] [id number] [id number] [id number] [id number] [facility] 2023-05-23 15:15:00 2023-05-23 14:58:05 Outpatient R RAMESH KHALIL [facility] [id number] [facility] 2023-05-23 00:00:00 2023-05-23 00:00:00 Orders Only Doctor Unassigned, [place] [facility] 1.840.114 350.1.13.10 [id number] [id number] [facility] 2023-05-16 09:35:37 2023-05-16 09:35:37 Outpatient [facility] [id number] Rivera Bee 2023-05-16 00:00:00 2023-05-16 00:00:00 Telephone Ramesh Khalil [facility] 1..840.114 350.1.13.10 4.2.7.2.686 [id number] [facility] 2023-05-15 00:00:00 2023-05-15 00:00:00 Orders Only Doctor Unassigned, [place] [facility] [id number] 350.1.13.10 4.2.7.2.686 [id number] [facility] 2022-11-28 08:00:29 2022-11-28 08:00:29 Outpatient [facility] [id number] Rivera Bee 2021-12-13 08:14:00 2021-12-13 10:43:00 Emergency X Rhett ADAMS [facility] ERT [id number] [facility] 2021-12-13 08:14:00 2021-12-13 10:43:00 Emergency Rhett Adamsge [facility] 1.840.114 350.1.13.10 4.2.7.2.686 [id number] [facility] 2021-10-03 15:45:00 2021-10-03 15:45:00 Outpatient R KHALIL RAMESH [facility] [id number] [facility] 2021-09-28 14:30:00 2021-09-28 15:26:47 Outpatient R KHALIL RAMESH [facility] [id number] [facility] 2021-09-28 14:30:00 2021-09-28 15:26:47 Office Visit Ramesh Khalil [facility] [id number] 350.1.13.10 4.2.7.2.686 [id number] [facility] 2021-01-24 00:00:00 2021-01-24 00:00:00 Orders Only Doctor Unassigned, [place] [facility] 1.2840.114 350.1.13.10 4.2.7.2.686 [id number] [facility] 2020-12-09 02:22:00 2020-12-09 05:01:[address] [facility] 1.840.114 350.1.13.10 4.2.7.2.686 [id number] [facility] 2020-12-09 02:22:00 2020-12-09 02:22:00 Emergency X KAVITHA GARZA [facility] ERT [id number] [facility] Results Test Description Test Time Test Comments Results Result Co mments Source COMPREHENSIVE METABOLIC [id number] 05:06:53* Test Item Value Reference Range Interpretation Comme nts GLUCOSE (test code = 2217) 110 MG/DL 70-99 H BUN (test code = 2208) 9 MG/DL 8-23 CREATININE (test code = 2214) 0.71 MG/DL 0.60-1.30 eGFR (2020 CKD-EPI) (test code = 29128) 97 ML/MIN/1.73 >60 CALC BUN/CREAT (test code [...] TESTING PERFORMED AT [facility] [address] [place] [id number] NURSING OFFICER: DESTIN SORIANO M.D. CLIA NUMBER [id number] [facility] [place] [id number] HEMOGLOBIN [id number] 04:29:46* Test Item Value Reference Range Interpretation Comme nts HEMOGLOBIN A1c (test code = 23943) 5.2 % 4.2-5.6 POCT GLUCOSE(AGE >30DAYS)2021-12-13 14:16:00* Test Item Value Reference Range Interpretation Comme nts POCT Glu (age>30days) (test code = 3342) 108 mg/dL 70-110 Lab Interpretation (test cod e = [id number]) Normal [facility] CAD [id number] 14:26:01Name: Marely : 1960 Sex: F - SCR MAMM BILATERAL ALLYSON CAD DIGITALBILATERAL DIGITAL SCREENING MAMMOGRAM 3D/2D WITH CAD: 01/18/2021LINICAL: Asymptomatic. Digital breast tomosynthesis was performed in addition to routine CC and MLO views. Current mammographic images wereevaluated by [employer] CAD (computer-aided detection) software. No prior exams were available for comparison. The tissue of both breasts is predominantly fatty. There are benign calcifications in both breasts. No suspicious mass, architectural distortion, malignant type calcification, orlymph node abnormality detected. IMPRESSION: BENIGNThere is no mammographic evidence of malignancy. Resume annual screening mammography in one year. Jimmie Sweet/jerica:02/02/2021 14:26:01 Technology Coordinator: Ana Marques MM, [facility] Mammographyletter sent: BIRADS 1-2 Normal Mammogram BI-RADS: 2 Benign Notes Date/Time Note Provider Source 2023-05-25 12:20:12 Received External MRI Results from [facility]. Scanned and uploaded into patient's chart. Placed in Provider box for Review. Bettina Olmos [facility] 2023-05-25 09:22:14 Tried contacting patient to see what was needed on her note;restrictions or not ? Received automated message asking for reason for call, then the phone just repeatedly rang. Unable to leave Shonda Kruse MA 05/25/2023 9:23 AM Shonda Kruse MA [facility] 2023-05-24 12:03:48 Patient states she was seen yesterday and she is needing a note to return back to work. She is requesting it be sent to her job by fax. Fax number [phone], Attn: Zach Rose Carlos [facility]
[2024-04-24 04:05] LABS: Absolute Basophils 0.1 K/uL (0-0.5); Absolute Eosinophils 0.3 K/uL (0-0.5); Absolute Lymphocytes (CBC) 1.3 K/uL (0.7-4.9); Absolute Monocytes 1.3 K/uL (0.1-1.3); Absolute Neutrophil 10.4 K/uL (1.8-8.0); Basophils % 0.5 % (0-1.3); Eosinophils % 2.1 % (0-4.4); Hematocrit 46.6 % (36.0-45.0); Hemoglobin 16.6 g/dL (12.0-15.0); Lymphocytes % 9.8 % (15.3-44.8); MCH 35.6 pg (27.0-35.0); MCHC 35.7 g/dL (32.0-36.0); MCV 99.7 fL (80-100); MPV 8.6 fL (7.6-11.3); Monocytes % 9.9 % (3.3-12.3); Neutrophils % 77.7 % (41.7-73.7); Nucleated Red Blood Cells % 0.1 % (0-0); Platelets 187 thou/uL (152-406); RBC Red Blood Cell Count 4.67 M/uL (3.86-4.86); Red Cell Distribution Width 12.7 % (12.1-15.2)
[2024-04-24 04:27] LABS: Albumin 3.3 g/dL (3.4-5.0); Albumin/Globulin Ratio 0.9 (1.1-1.8); Anion Gap 6.3 mEq/L (5.0-15.0); Bilirubin Total 0.8 mg/dL (0.2-1.0); Globulin 3.5 g/dL (2.3-3.5); Potassium 4.3 mEq/L (3.5-5.1); Protein, Total 6.8 g/dL (6.4-8.2)
[2024-04-24] MEDS ORDERED: ONDANSETRON 4 MG/2 ML VIAL ONE (04:29)
[2024-04-24] MEDS ORDERED: METHOCARBAMOL 1,000 MG/10 ML VIAL ONE (04:29)
[2024-04-24] MEDS ORDERED: KETOROLAC 30 MG/ML INJ ONE (04:29)
[2024-04-24] MEDS ORDERED: MORPHINE 4 MG/ML SYR ONE (04:30)
[2024-04-24] MEDS ORDERED: NA CHLORIDE 0.9% 100 ML ONE (04:30)
[2024-04-24] MEDS ORDERED: NA CHLORIDE 0.9% 1,000 ML ONE (04:30)
--- NOTE | 2024-04-24 06:04 | RAD REPORT ---
PROCEDURE: XR Left Femur, 2 Views CLINICAL INDICATION: The patient is 63 years old and is Female; Hip pain left. TECHNIQUE: Frontal and lateral views of the left femur. COMPARISON: None. FINDINGS: BONES/JOINTS: Mild degenerative changes of the left hip and of the left knee, greatest in the media l compartment. No acute fracture. No subluxation or dislocation. No suspicious lytic or blastic bone lesion. SOFT TISSUES: Unremarkable IMPRESSION: 1. No acute findings in the left femur. 2. Mild degenerative changes of the left hip and of the left knee, greatest in the medial compartme nt. Electronically signed by: Michelet Stephens MD 04/24/2024 04:51 AM [facility] Due to temporary technical issues with the PACS/[employer] reporting system, reports are being sabas d by the in-house radiologist without review as a courtesy to ensure prompt reporting the interpreting radiologist is fully responsible for the content of the report. Transcribed Date/Time: 04/24/2024 6:04 AM
--- NOTE | 2024-04-24 06:20 | RAD REPORT ---
EXAM: CT Chest, Abdomen and Pelvis With Intravenous Contrast CLINICAL HISTORY: The patient is 63 years old and is Female; right abdominal injury ;Abdominal dist ention TECHNIQUE: Axial computed tomography images of the chest, abdomen and pelvis with intravenous contr ast. Sagittal and coronal reformatted images were created and reviewed. This CT exam was performed using one or more of the following dose reduction techniques: automated exposure control, adjustment of the mA and/or kV according to patient size, and/or use of iterative reconstruction technique. COMPARISON: No relevant prior studies available. FINDINGS: CHEST: Lungs: Unremarkable. No mass. No consolidation. Pleural space: Unremarkable. No significant effusion. No pneumothorax. Heart: Unremarkable. No cardiomegaly. No significant pericardial effusion. No significant c oronary artery calcifications. Mediastinum: Hiatal hernia. ABDOMEN: Liver: Unremarkable. No mass. Gallbladder and bile ducts: Unremarkable. No calcified stones. No ductal dilation. Pancreas: Unremarkable. No ductal dilation. No mass. Spleen: Unremarkable. No splenomegaly. Adrenals: Unremarkable. No mass. Kidneys and ureters: Simple cyst in the left kidney. No follow-up imaging is recommended. No hydronephrosis. No solid mass. Stomach and bowel: Scattered colonic diverticula. No obstruction. No mucosal thickening. PELVIS: Appendix: No findings to suggest acute appendicitis. Bladder: Unremarkable. No mass. Reproductive: Unremarkable as visualized. CHEST, ABDOMEN and PELVIS: Intraperitoneal space: Unremarkable. No significant fluid collection. No free air. Bones/joints: Mildly displaced acute fracture of the right lateral sixth rib. No dislocation. Soft tissues: Unremarkable. Vasculature: Scattered atherosclerotic vascular calcifications. No aortic aneurysm. Lymph nodes: Unremarkable. No enlarged lymph nodes. IMPRESSION: Mildly displaced acute fracture of the right lateral sixth rib. Electronically signed by: Abelardo Man MD 04/24/2024 05:17 AM [facility] 8 Due to temporary technical issues with the PACS/[employer] reporting system, reports are being sabas d by the in-house radiologist without review as a courtesy to ensure prompt reporting the interpreting radiologist is fully responsible for the content of the report. Transcribed Date/Time: 04/24/2024 6:19 AM
--- NOTE | 2024-04-24 06:23 | ER ---
Nurse's Notes [facility] Name: Marely Choi Age: 63 yrs Sex: Female : 1960 Arrival Date: 04/24/2024 Time: 03:09 Bed 5 Private MD: Diagnosis: Acute fall at home, acute right sixth rib fracture with displacement, acute contusion left hip and knee Presentation: 04/24 03:27 Chief complaint: Patient states: fell Sunday, scans were negative but still in horrible vc1 pain, hard to take deep breath. Coronavirus screen: Client denies travel out of the [place] in the last 14 days. At this time, the client does not indicate any symptoms associated with coronavirus-19. Ebola Screen: Patient negative for fever greater than or equal to 101.5 degrees Fahrenheit, and additional compatible Ebola Virus Disease symptoms Patient denies exposure to infectious person. Patient denies travel to an Ebola-affected area in the 21 days before illness onset. No symptoms or risks identified at this time. Initial Sepsis Screen: Does the patient meet any 2 criteria? No. Patient's initial sepsis screen is negative. Does the patient have a suspected source of infection? No. Patient's initial sepsis screen is negative. Risk Assessment: Do you want to hurt yourself or someone else? Patient reports no desire to harm self or others. Onset of symptoms was April 20, 2024. Care prior to arrival: None. Activity prior to arrival: None. 03:27 Method Of Arrival: Ambulatory vc1 03:27 Acuity: MER 4 vc1 Triage Assessment: 03:36 General: Appears in no apparent distress. uncomfortable, obese, Behavior is calm, vc1 cooperative, appropriate for age. Pain: Complains of pain in anterior aspect of right lateral abdomen Pain does not radiate. Pain currently is 10 out of 10 on a pain scale. Quality of pain is described as sharp, Aggravated by deep breath, movement. EENT: No deficits noted. No signs and/or symptoms were reported regarding the EENT system. Neuro: Level of Consciousness is awake, alert, obeys commands, Oriented to person, place, time, situation, Appropriate for age. Cardiovascular: Capillary refill < 3 seconds Patient's skin is warm and dry. Respiratory: Airway is patent Respiratory effort is even, unlabored, Respiratory pattern is regular, symmetrical. GI: Abdomen is round non-distended. : No deficits noted. No signs and/or symptoms were reported regarding the genitourinary system. Derm: Skin is intact, is healthy with good turgor, Skin is dry, Skin is normal, Skin temperature is warm. Musculoskeletal: Circulation, motion, and sensation intact. Range of motion: intact in all extremities, Reports pain in anterior aspect of right lateral abdomen. Historical: - Allergies: 03:29 No Known Allergies; vc1 - Home Meds: 03:29 hydroxychloroquine Oral [Active]; meloxicam Oral [Active]; Methotrexate Sodium Oral vc1 [Active]; duloxetine oral [Active]; pregabalin Oral [Active]; multivitamin oral tablet [Active]; Folic Acid Oral [Active]; - PMHx: 03:29 osteoarthritis; Rheumatoid Arthritis; vc1 - PSHx: 03:29 section; vc1 - Immunization history:: Client reports having NOT received the Covid vaccine. Flu vaccine is up to date. - Infectious Disease History:: Denies. - Social history:: Smoking status: Patient/guardian denies using tobacco, Stopped _ months ago 0.25. - Family history:: not pertinent. Screenin:35 [facility] ED Fall Risk Assessment (Adult) History of falling in the last 3 months, vc1 including since admission Yes- single mechanical fall (1 pt) Confusion or Disorientation No (0 pts) Intoxicated or Sedated No (0 pts) Impaired Gait No (0 pts) Mobility Assist Device Used No (0 pt) Altered Elimination No (0 pt) Score/Fall Risk Level 0 - 2 = Low Risk Oriented to surroundings, Maintained a safe environment, Educated pt \T\ family on fall prevention, incl call for assistance when getting out of bed. Abuse screen: Denies threats or abuse. Nutritional screening: No deficits noted. Tuberculosis screening: No symptoms or risk factors identified. Assessment: 05:13 Reassessment: Patient appears in no apparent distress at this time. Patient and/or bm8 family updated on plan of care and expected duration. Pain level reassessed. Patient states feeling better. Patient states symptoms have improved. Reassessment: pt is resting with eyes closed breathing is even unlabored with symmetrical rise and fall of chest. Pain: Pain currently is 2 out of 10 on a pain scale. 06:11 Reassessment: Patient appears in no apparent distress at this time. Patient and/or bm8 family updated on plan of care and expected duration. Pain level reassessed. Patient is alert, oriented x 3, equal unlabored respirations, skin warm/dry/pink. Patient states feeling better. Patient states symptoms have improved. Vital Signs: 03:27 BP 151 / 99; Pulse 103; Resp 12; Temp 98.2; Pulse Ox 100% ; Weight 104.33 kg; Height 5 vc1 ft. 6 in. ; Pain 10/10; 05:13 BP 129 / 77; Pulse 84; Resp 14; Temp 98.2; Pulse Ox 95% ; Pain 2/10; bm8 06:11 BP 135 / 76; Pulse 85; Resp 18; Temp 98.2; Pulse Ox 95% ; Pain 1/10; bm8 03:27 Body Mass Index 37.12 (104.33 kg, 167.64 cm) vc1 03:27 Pain Scale: Adult vc1 05:13 Pain Scale: Adult bm8 06:11 Pain Scale: Adult bm8 Young Coma Score: 06:11 Eye Response: spontaneous(4). Motor Response: obeys commands(6). Verbal Response: bm8 oriented(5). Total: 15. 06:19 Eye Response: spontaneous(4). Motor Response: obeys commands(6). Verbal Response: sp4 oriented(5). Total: 15. ED Course: 03:26 Patient arrived in ED. kmf 03:28 Mehran Franco MD is Attending Physician. sp4 03:29 Triage completed. vc1 03:34 Arm band placed on right wrist. vc1 03:36 Patient has correct armband on for positive identification. Placed in gown. Bed in low vc1 position. Provided Education on: safety. Pulse ox on. NIBP on. 03:46 Inserted saline lock: 20 gauge in right antecubital area, using aseptic technique. rv1 Blood collected. Flushed with 10 mL NS. 03:47 CBC with Diff Sent. rv1 03:47 CMP Sent. rv1 03:47 Lipase Sent. rv1 04:15 Femur Left XRAY In Process Unspecified. EDMS 04:56 CT Chest, Abdomen, Pelvis - W/Contrast In Process Unspecified. EDMS 05:13 Ozzy Johnson, RN is Primary Nurse. bm8 06:11 No provider procedures requiring assistance completed. IV discontinued, intact, bm8 bleeding controlled, No redness/swelling at site. Pressure dressing applied. Administered Medications: 04:39 Drug: Methocarbamol IVPB 1 grams IVPB once over 1 hrs; (mix in NS 100 mL) Route: IVPB; bm8 Infused Over: 1 hrs; Site: right antecubital; 05:29 Follow up: Response: No adverse reaction; IV Status: Completed infusion; IV Intake: bm8 100ml 04:40 Drug: morphine IVP or IV 4 mg IVP once over 4 mins Route: IVP; Infused Over: 4 mins; bm8 Site: right antecubital; 05:30 Follow up: Response: No adverse reaction bm8 04:40 Drug: Ondansetron IVP 4 mg IVP once; over 2 minutes Route: IVP; Site: right antecubital;bm8 05:29 Follow up: Response: No adverse reaction bm8 04:40 Drug: Ketorolac IVP 30 mg IVP once Route: IVP; Site: right antecubital; bm8 05:29 Follow up: Response: No adverse reaction bm8 04:40 Drug: NS 0.9% IV 1000 ml IV at 1 bolus Per protocol; to be given as a bolus over 60 bm8 minutes Route: IV; Rate: 1 bolus; Site: right antecubital; 06:15 Follow up: Response: No adverse reaction; IV Status: Completed infusion; IV Intake: bm8 1000ml Medication: 03:36 VIS not applicable for this client. vc1 Intake: 05:29 IV: 100ml; Total: 100ml. bm8 06:15 IV: 1000ml; Total: 1100ml. bm8 Outcome: 06:23 Discharge ordered by . sp4 06:31 Discharged to home ambulatory, with family, bm8 06:31 Condition: stable 06:31 Discharge instructions given to patient, family, Instructed on discharge instructions, follow up and referral plans. no drinking with medication, no driving heavy equipment, medication usage, safety practices, Demonstrated understanding of instructions, follow-up care, medications, Prescriptions given X 2, 06:31 Patient left the ED. bm8 Signatures: [facility] Liset Phan RN RN vc1 Mary Zayas rv1 Mehran Franco MD MD sp4 Emma Butcherf Ozzy Johnson RN RN bm8 Corrections: (The following items were deleted from the chart) 03:34 03:29 PSHx: None; vc1 vc1
--- NOTE | 2024-04-24 06:23 | EDPHYS ---
[facility] Name: Marely Choi Age: 63 yrs Sex: Female : 1960 Arrival Date: 04/24/2024 Time: 03:09 Bed 5 Private MD: ED Physician Mehran Franco HPI: 04/24 03:28 This 63 yrs old Female presents to ER via Unassigned with complaints of right sp4 flank pain after a fall . 06:19 Patient presents with moderate to severe right flank pain associated with left hip and sp4 knee pain. Patient states she fell onto the concrete 04/20/2024 . Patient presented to the emergency room 04/20/2024 4:15 PM and was discharged after negative x-rays.. Historical: - Allergies: 03:29 No Known Allergies; vc1 - Home Meds: 03:29 hydroxychloroquine Oral [Active]; meloxicam Oral [Active]; Methotrexate Sodium Oral vc1 [Active]; duloxetine oral [Active]; pregabalin Oral [Active]; multivitamin oral tablet [Active]; Folic Acid Oral [Active]; - PMHx: 03:29 osteoarthritis; Rheumatoid Arthritis; vc1 - PSHx: 03:29 section; vc1 - Immunization history:: Client reports having NOT received the Covid vaccine. Flu vaccine is up to date. - Infectious Disease History:: Denies. - Social history:: Smoking status: Patient/guardian denies using tobacco, Stopped _ months ago 0.25. - Family history:: not pertinent. ROS: 06:19 Constitutional: Negative for fever, chills, and weight loss, positive for right flank sp4 positive right chest wall pain, positive left knee and left hip pain 06:19 All other systems are negative, Exam: 06:19 Constitutional: This is a well developed, well nourished patient who is awake, alert, sp4 and in no acute distress. Head/Face: Normocephalic, atraumatic. Eyes: Pupils equal round and reactive to light, extra-ocular motions intact. Lids and lashes normal. Conjunctiva and sclera are not injected. Cornea within normal limits. Periorbital areas with no swelling, redness, or edema. ENT: Nares patent. No nasal discharge, no septal abnormalities noted. Tympanic membranes are normal and external auditory canals are clear. Oropharynx with no redness, swelling, or masses, exudates, or evidence of obstruction, uvula midline. Mucous membranes moist. Neck: Trachea midline, no thyromegaly or masses palpated, and no cervical lymphadenopathy. Supple, full range of motion without nuchal rigidity, or vertebral point tenderness. Chest/axilla: Normal chest wall appearance and motion. Positive right lower chest wall tenderness without deformity. Cardiovascular: Regular rate and rhythm with a normal S1 and S2. No gallops, murmurs, or rubs. Normal PMI, no JVD. No pulse deficits. Respiratory: Lungs have equal breath sounds bilaterally, clear to auscultation and percussion. No rales, rhonchi or wheezes noted. No increased work of breathing, no retractions or nasal flaring. Abdomen/GI: Soft, with normal bowel sounds. No distension or tympany. No guarding or rebound. No evidence of tenderness throughout. Back: No spinal tenderness. No costovertebral tenderness. Skin: Warm, dry with normal turgor. Normal color with no rashes, no lesions, and no evidence of cellulitis. MS/ Extremity: Pulses equal, no cyanosis. Neurovascular intact. Full, normal range of motion. Neuro: Awake and alert, GCS 15, oriented to person, place, time, and situation. Cranial nerves II-XII grossly intact. Motor strength 5/5 in all extremities. Sensory grossly intact. Psych: Awake, alert, with orientation to person, place and time. Behavior, mood, and affect are within normal limits Vital Signs: 03:27 BP 151 / 99; Pulse 103; Resp 12; Temp 98.2; Pulse Ox 100% ; Weight 104.33 kg; Height 5 vc1 ft. 6 in. ; Pain 10/10; 05:13 BP 129 / 77; Pulse 84; Resp 14; Temp 98.2; Pulse Ox 95% ; Pain 2/10; bm8 06:11 BP 135 / 76; Pulse 85; Resp 18; Temp 98.2; Pulse Ox 95% ; Pain 1/10; bm8 03:27 Body Mass Index 37.12 (104.33 kg, 167.64 cm) vc1 03:27 Pain Scale: Adult vc1 05:13 Pain Scale: Adult bm8 06:11 Pain Scale: Adult bm8 Valatie Coma Score: 06:11 Eye Response: spontaneous(4). Motor Response: obeys commands(6). Verbal Response: bm8 oriented(5). Total: 15. 06:19 Eye Response: spontaneous(4). Motor Response: obeys commands(6). Verbal Response: sp4 oriented(5). Total: 15. MDM: 06:07 ED course: COMPARISON: No relevant prior studies available. FINDINGS: CHEST: Lungs: sp4 Unremarkable. No mass. No consolidation. Pleural space: Unremarkable. No significant effusion. No pneumothorax. Heart: Unremarkable. No cardiomegaly. No significant pericardial effusion. No significant coronary artery calcifications. Mediastinum: Hiatal hernia. ABDOMEN: Liver: Unremarkable. No mass. Gallbladder and bile ducts: Unremarkable. No calcified stones. No ductal dilation. Pancreas: Unremarkable. No ductal dilation. No mass. Spleen: Unremarkable. No splenomegaly. Adrenals: Unremarkable. No mass. Kidneys and ureters: Simple cyst in the left kidney. No follow-up imaging is recommended. No hydronephrosis. No solid mass. Stomach and bowel: Scattered colonic diverticula. No obstruction. No mucosal thickening. PELVIS: Appendix: No findings to suggest acute appendicitis. Bladder: Unremarkable. No mass. Reproductive: Unremarkable as visualized. CHEST, ABDOMEN and PELVIS: Intraperitoneal space: Unremarkable. No significant fluid collection. No free air. Bones/joints: Mildly displaced acute fracture of the right lateral sixth rib. No dislocation. Soft tissues: Unremarkable. Vasculature: Scattered atherosclerotic vascular calcifications. No aortic aneurysm. Lymph nodes: Unremarkable. No enlarged lymph nodes. IMPRESSION: Mildly displaced acute fracture of the right lateral sixth rib. Electronically signed by: Abelardo Man MD 04/24/2024 05:17 AM. ED course: PROCEDURE: XR Left Femur, 2 Views CLINICAL INDICATION: The patient is 63 years old and is Female; Hip pain left. TECHNIQUE: Frontal and lateral views of the left femur. COMPARISON: None. FINDINGS: BONES/JOINTS: Mild degenerative changes of the left hip and of the left knee, greatest in the medial compartment. No acute fracture. No subluxation or dislocation. No suspicious lytic or blastic bone lesion. SOFT TISSUES: Unremarkable IMPRESSION: 1. No acute findings in the left femur. 2. Mild degenerative changes of the left hip and of the left knee, greatest in the medial compartment. . 06:21 Differential diagnosis: gastritis, gastroesophageal reflux disease, Ureterolithiasis. sp4 Data reviewed: vital signs, nurses notes, lab test result(s), radiologic studies, CT scan, plain films. Consideration of Admission/Observation Escalation of care including admission/observation considered. ED course: Patient today diagnosed with acute right sixth rib fracture with mild displacement. Otherwise no other fractures. Patient stable for discharge home. Patient warrants work release for 1 week. Hydrocodone 10 prescribed total of 25 tablets as needed pain. 06:23 Medical Screening Exam initiated sp4 04/24 03:36 Order name: CBC with Diff; Complete Time: 06:08 sp4 04/24 03:36 Order name: CMP; Complete Time: 06:08 sp4 04/24 03:36 Order name: Lipase; Complete Time: 06:08 sp4 04/24 03:37 Order name: CT Chest, Abdomen, Pelvis - W/Contrast sp4 04/24 03:37 Order name: Femur Left XRAY sp4 04/24 03:36 Order name: IV Saline Lock; Complete Time: 03:47 sp4 04/24 03:36 Order name: Labs collected and sent; Complete Time: 03:47 sp4 Administered Medications: 04:39 Drug: Methocarbamol IVPB 1 grams IVPB once over 1 hrs; (mix in NS 100 mL) Route: IVPB; bm8 Infused Over: 1 hrs; Site: right antecubital; 05:29 Follow up: Response: No adverse reaction; IV Status: Completed infusion; IV Intake: bm8 100ml 04:40 Drug: morphine IVP or IV 4 mg IVP once over 4 mins Route: IVP; Infused Over: 4 mins; bm8 Site: right antecubital; 05:30 Follow up: Response: No adverse reaction bm8 04:40 Drug: Ondansetron IVP 4 mg IVP once; over 2 minutes Route: IVP; Site: right antecubital;bm8 05:29 Follow up: Response: No adverse reaction bm8 04:40 Drug: Ketorolac IVP 30 mg IVP once Route: IVP; Site: right antecubital; bm8 05:29 Follow up: Response: No adverse reaction bm8 04:40 Drug: NS 0.9% IV 1000 ml IV at 1 bolus Per protocol; to be given as a bolus over 60 bm8 minutes Route: IV; Rate: 1 bolus; Site: right antecubital; 06:15 Follow up: Response: No adverse reaction; IV Status: Completed infusion; IV Intake: bm8 1000ml Disposition Summary: 04/24/24 06:23 Discharge Ordered Notes: Location: Home sp4 Problem: new sp4 Symptoms: have improved sp4 Condition: Stable sp4 Diagnosis - Acute fall at home, acute right sixth rib fracture with displacement, acute sp4 contusion left hip and knee Followup: sp4 - With: Private Physician - When: 7 - 10 days - Reason: Recheck today's complaints Discharge Instructions: - Discharge Summary Sheet sp4 - Chest Contusion, Adult, [id number] sp4 Forms: - Work release form sp4 - Patient Portal Instructions sp4 Prescriptions: - methocarbamol 750 mg Oral tablet - take 2 tablets ORAL route every 8 hours for 10 days PRN pain; 60 tablet; sp4 Refills: 0, Product Selection Permitted Signatures: Dispatcher [employer] Liset Quan RN RN vc1 Mehran Franco MD MD sp4 Ozzy Johnson RN RN bm8 Corrections: (The following items were deleted from the chart) 03:34 03:29 PSHx: None; vc1 vc1
[2024-04-25 13:34] VITALS: TEMP 98.2
[2024-04-25 13:35] VITALS: O2SAT 95
[2024-04-25 13:37] VITALS: BP 135/76
== END 2024-04-24 06:31 | disposition home or self-care (01) ==
LOC: ER 03:09
DX: S22.31XA Fracture of one rib, right side, initial encounter for closed fracture (principal); S70.02XA Contusion of left hip, initial encounter; S80.02XA Contusion of left knee, initial encounter; W18.30XA Fall on same level, unspecified, initial encounter; Y92.009 Unspecified place in unspecified non-institutional (private) residence as the place of occurrence of the external cause
CPT/HCPCS: 96365; 96361; 85025; 36415; 83690; 80053; 71260; 74177; 73552; 96375; 99284; Q9967; J2405; J2800; J7030

== ENCOUNTER 2024-06-20 09:24 | Emergency (ER) | payer BC ==
--- OUTSIDE RECORDS SUMMARY | 2024-06-20 09:27 | XMS REPORT | Continuity of Care Document ---
Author Name Unknown Address [address] [facility] [place] [address] Organization [facility] [place] Address [address] [facility] [address] [place] [address] Care Team Providers Care Under Cutter Name Role Phone PCP, PATIENT DOES NOT HAVE A Primary Care Physic ADOLFO Painting Attending Clinician Unavailable Ramesh Khalil MD Attending Clinician [phone] RAMESH KHALIL Attending Clinician UnavailRAMESH Bowen Attending Clinician Unavaildanisha boone Doctor Unassigned, [place] Attending Clinician U Rhett Gill Attending Clinician Unavailable Rhett Laboy Attending Clinician [phone] Kavitha Garza DO Attending Clinician KAVITHA GARZA Attending Clinician Unavailab le Payers Payer Name Policy Type Policy Number Effective Date Expirati on Date Source [employer] [id number] 2018 00:00:00 Problems Condition Name Condition Details Condition Category Status Onset Date Resolution Date Last Treatment Date Treating Clinician Comments Source No known active problems No known active problems Disease [facility] Allergies, Adverse Reactions, Alerts Allergy Name Allergy Type Status Severity Reaction(s) Onset Date Inactive Date Treating Clinician Comments Source NO KNOWN ALLERGIE S Drug Class Active [facility] Social History Social Habit Start Date Stop Date Quantity Comments Source Sexual orientation U [facility] Exposure to SARS-CoV-2 (event) 2021-12-03 00:00:00 2021-12-13 09:17:00 Not sure [facility] History of Social function 2021-09-28 00:00:00 2021-09-28 00:00:00 [facility] Sex Ass[birth year] At 1960 00:00:00 1960 00:00:00 [facility] Smoking Status Start Date Stop Date Source Tobacco smoking consumption unknown [facility] Medications Ordered Medication Name Filled Medication Name Start Date Stop Date Current Medication? Ordering Clinician Indication Dosage Frequency Signature (SIG) Comments Components Source amoxicillin -clavulanat e 875-125 mg per tablet 2021-03 00:00: 00 Yes [id number] 1{tbl} Take 1 tablet by mouth every 12 (twelve) hours. [facility] doxycycline hyclate 100 mg capsule 2021-03 00:00: 00 Yes [id number] 100mg Take 1 capsule by mouth in the morning and 1 capsule in the evening. [facility] triamcinolo ne acetonide (KENALOG) injection 40 mg 09-28 20:45: 00 09-28 19:40 :00 No [id number] 40mg [facility] cyclobenzap rine 5 mg tablet 06-08 00:00: 00 Yes 5mg Take 1 tablet by mouth 2 (two) times daily as needed for Muscle Spasms for up to 15 doses. [facility] ibuprofen (MOTRIN IB) 200 mg tablet 06-08 00:00: 00 Yes 400mg Take 2 tablets by mouth every 6 (six) hours as needed for Pain (scale 1-3) for up to 30 doses. [facility] Vital Signs Vital Name Observation Time Observation Value Comments S juan pablo Body height 2023-05-23 19:20:00 170.2 cm [facility] Body weight 2023-05-23 19:20:00 107.502 kg [facility] BMI 2023-05-23 19:20:00 37.12 kg/m2 [facility] Oxygen saturation in Arterial blood by Pulse oximetry 2021-12-13 13:08:00 98 /min [facility] Systolic blood pressure 2021-12-13 13:08:00 143 mm[Hg] [facility] Diastolic blood pressure 2021-12-13 13:08:00 96 mm[Hg] [facility] Heart rate 2021-12-13 13:08:00 85 /min [facility] Body temperature 2021-12-13 13:08:00 36.72 Marva [facility] Respiratory rate 2021-12-13 13:08:00 18 /min [facility] Body weight 2021-12-13 13:08:00 107.049 kg [facility] BMI 2021-12-13 13:08:00 38.09 kg/m2 [facility] Systolic blood pressure 2021-09-28 19:03:00 122 mm[Hg] [facility] Diastolic blood pressure 2021-09-28 19:03:00 82 mm[Hg] [facility] Heart rate 2021-09-28 19:03:00 88 /min [facility] Body height 2021-09-28 19:03:00 167.6 cm [facility] Body weight 2021-09-28 19:03:00 104.191 kg [facility] BMI 2021-09-28 19:03:00 37.07 kg/m2 [facility] Oxygen saturation in Arterial blood by Pulse oximetry 2021-09-28 19:03:00 98 /min [facility] Procedures Procedure Date / Time Performed Performing Clinicia n Source ASSIGNMENT OF BENEFITS 2023-05-23 19:16:52 Docto r Unassigned, [place] [facility] EXTERNAL PROVIDER RECORDS 2023-05-15 05:01:00 Doctor Unassigned, [place] [facility] POCT GLUCOSE(AGE >30DAYS) 2021-12-13 14:16:00 Rhett Adams [facility] CONSENT/REFUSAL FOR DIAGNOSIS AND TREATMENT 2021-12-13 12:59:35 Doctor Unassigned, [place] [facility] Encounters Start Date/Time End Date/Time Encounter Type Admission Type Attending Clinicians Care Facility Care Department Encounter ID Source 2021-09-13 16:56:09 Outpatient ADOLFO CEBALLOS [facility] [id number] [facility] 2021-08-25 08:32:52 Outpatient ADOLFO CEBALLOS [facility] [id number] [facility] 2023-05-25 00:00:00 2023-05-25 00:00:00 Telephone Star [facility]illaquita [facility] [id number] [id number] [id number] [facility] 2023-05-24 00:00:00 2023-05-24 00:00:00 Telephone Ramesh Khalil Monse [facility] 1..840.114 350.1.13.10 4.2.7.2.686 [id number] [facility] 2023-05-23 15:15:00 2023-05-23 15:15:00 Office Visit KhalilRamesh marmolejo [facility] [id number] 350.1.13.10 4.2.7.2.686 [id number] [facility] 2023-05-23 15:15:00 2023-05-23 14:58:05 Outpatient R RAMESH KHALIL [facility] [id number] [facility] 2023-05-23 00:00:00 2023-05-23 00:00:00 Orders Only Doctor Unassigned, [place] [facility] 1.840.114 350.1.13.10 4.2.7.2.686 [id number] [facility] 2023-05-16 09:35:37 2023-05-16 09:35:37 Outpatient ADA [facility] [id number] [facility] 2023-05-16 00:00:00 2023-05-16 00:00:00 Telephone Ramesh Khalil [facility] 1..840.114 350.1.13.10 4.2.7.2.686 [id number] [facility] 2023-05-15 00:00:00 2023-05-15 00:00:00 Orders Only Doctor Unassigned, [place] [facility] [id number] 350.1.13.10 4.2.7.2.686 [id number] [facility] 2022-11-28 08:00:29 2022-11-28 08:00:29 Outpatient ADA [facility] [id number] [facility] 2021-12-13 08:14:00 2021-12-13 10:43:00 Emergency X Rhett ADAMS [facility] ERT [id number] [facility] 2021-12-13 08:14:00 2021-12-13 10:43:00 Emergency Rhett Adamsge [facility] 1.840.114 350.1.13.10 4.2.7.2.686 [id number] [facility] 2021-10-03 15:45:00 2021-10-03 15:45:00 Outpatient R KHALIL RAMESH [facility] [id number] [facility] 2021-09-28 14:30:00 2021-09-28 15:26:47 Outpatient R KHALIL RAMESH [facility] [id number] [facility] 2021-09-28 14:30:00 2021-09-28 15:26:47 Office Visit Ramesh Khalil [facility] [id number] 350.1.13.10 4.2.7.2.686 [id number] [facility] 2021-01-24 00:00:00 2021-01-24 00:00:00 Orders Only Doctor Unassigned, [place] [facility] 1.2840.114 350.1.13.10 4.2.7.2.686 [id number] [facility] 2020-12-09 02:22:00 2020-12-09 05:01:00 Emergency Kavitha Garza [facility] 1.840.114 350.1.13.10 4.2.7.2.686 [id number] [facility] 2020-12-09 02:22:00 2020-12-09 02:22:00 Emergency X KAVITHA GARZA [facility] ERT [id number] [facility] Results Test Description Test Time Test Comments Results Result Co mments Source COMPREHENSIVE METABOLIC [id number] 05:06:53* Test Item Value Reference Range Interpretation Comme nts GLUCOSE (test code = 2217) 110 MG/DL 70-99 H BUN (test code = 2208) 9 MG/DL 8-23 CREATININE (test code = 2214) 0.71 MG/DL 0.60-1.30 eGFR (2020 CKD-EPI) (test code = 28013) 97 ML/MIN/1.73 >60 CALC BUN/CREAT (test code [...] RATIO 1.0-2.6 BILIRUBIN, TOTAL (test code = 2206) 0.7 MG/DL <=1.2 ALKALINE PHOSPHATASE (test code = 2204) 78 U/L 40-136 AST (test code = 2218) 29 U/L 9-40 ALT (test code = 2219) 28 U/L 5-40 UNLESS OTHERWISE INDICATED, ALL TESTING PERFORMED AT [facility] [address] [place] [id number] [employer] FILLER: DESTIN SORIANO M.D. [place] NUMBER [id number] [facility] [place]. [id number] HEMOGLOBIN [id number] 04:29:46* Test Item Value Reference Range Interpretation Comme nts HEMOGLOBIN A1c (test code = 62767) 5.2 % 4.2-5.6 POCT GLUCOSE(AGE >30DAYS)2021-12-13 14:16:00* Test Item Value Reference Range Interpretation Comme nts POCT Glu (age>30days) (test code = 3342) 108 mg/dL 70-110 Lab Interpretation (test cod e = [id number]) [facility] [id number] 14:26:01Name: Marely : 1960 Sex: F - SCR MAMM BILATERAL ALLYSON CAD DIGITALBILATERAL DIGITAL SCREENING MAMMOGRAM 3D/2D WITH CAD: 01/18/2021LINICAL: Asymptomatic. Digital breast tomosynthesis was performed in addition to routine CC and MLO views. Current mammographic images wereevaluated by [employer] CAD (computer-aided detection) software. No prior exams were available for comparison. The tissue of both breasts is predominantly fatty. There are benign calcifications in both breasts. No suspicious mass, architectural distortion, malignant type calcification, orlymph node abnormality detected. IMPRESSION: BENIGNThere is no mammographic evidence of malignancy. Resume annual screening mammography in one year. Jimmie Sweet/jerica:02/02/2021 14:26:01 [employer] Agent: Ana Marques MM, [facility] Mammographyletter sent: BIRADS 1-2 Normal Mammogram BI-RADS: 2 Benign Notes Date/Time Note Provider Source 2023-05-25 12:20:12 Received External MRI Results from [facility]. Scanned and uploaded into patient's chart. Placed in Provider box for Review. Bettina Olmos [facility] 2023-05-25 09:22:14 Tried contacting patient to see what was needed on her note;restrictions or not ? Received automated message asking for reason for call, then the phone just repeatedly rang. Unable to leave Shonda Kruse MA 05/25/2023 9:23 AM Shodna Kruse MA [facility] 2023-05-24 12:03:48 Patient states she was seen yesterday and she is needing a note to return back to work. She is requesting it be sent to her job by fax. Fax number [phone], Attn: Zach oRse Carlos [facility]
[2024-06-20] MEDS ORDERED: ACETAMINOPHEN 500 MG TAB ONE (09:49)
[2024-06-20] MEDS ORDERED: DERMABOND SKIN ADHESIVE TOP ONE (09:57)
--- NOTE | 2024-06-20 10:02 | RAD REPORT ---
EXAMINATION: Head C Spine Mpr Wo Con CLINICAL INDICATION: Female, 63 years old. pain sp fall TECHNIQUE: Axial CT images from the skull base to the vertex without intravenous contrast. Axial CT i mages through the cervical spine were obtained without intravenous contrast. Sagittal and coronal reformatted images were created from the data set. Coronal and sagittal reformatted images were creat ed from the data set. One or more of the following dose reduction techniques were used: Automated exposure control, adjustment of the mA and/or kV according to patient size, and/or iterative reconstr uction. Unless otherwise specified, incidental findings do not require dedicated imaging follow-up. HO2004. COMPARISON: No prior exam. FINDINGS: Head: INTRACRANIAL: No acute intracranial hemorrhage. No hydrocephalus. No mass effect or midline shift. No significant white matter disease. VASCULATURE: No visualized abnormalities in the arteries or dural venous sinuses. SCALP/SKULL: No calvarial fracture identified. No acute soft tissue abnormality. SINUSES: The visualized paranasal sinuses are mostly clear. No significant mastoid fluid. Cervical spine: ALIGNMENT: Trace anterolisthesis C4 on C5 and retrolisthesis of C5 on C6 is likely related to underly ing degenerative changes. BONE: Vertebral body heights are maintained. No aggressive osseous lesions. DEGENERATIVE: Multilevel cervical spondylosis with evidence of bilateral neural foraminal narrowing. No high grade central spinal stenosis. There is severe neural foraminal narrowing on the right at C4-5 and C5-6 and on the left at C5-6. . SOFT TISSUE: No significant abnormalities in the soft tissue of the neck. The visualized lung apices are clear. IMPRESSION: No acute intracranial abnormality. No acute fracture or traumatic malalignment of the cervical spine.
--- NOTE | 2024-06-20 10:28 | ER ---
Nurse's Notes 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 Coronavirus screen: bp At this time, the client does not indicate any symptoms associated with coronavirus-19. Ebola Screen: No symptoms or risks identified at this time. Initial Sepsis Screen: Does the patient meet any 2 criteria? No. Patient's initial sepsis screen is negative. Does the patient have a suspected source of infection? No. Patient's initial sepsis screen is negative. Risk Assessment: Do you want to hurt yourself or someone else?. Onset of symptoms was June 20, 2024 at 09:00. 10:05 Method Of Arrival: Ambulatory bp 10:05 Acuity: MER 3 bp Triage Assessment: 10:06 General: Appears in no apparent distress. comfortable, obese, Behavior is cooperative, bp appropriate for age, anxious. Pain: Complains of pain in face. EENT: No deficits noted. Neuro: No deficits noted. Cardiovascular: No deficits noted. Respiratory: No deficits noted. GI: No signs and/or symptoms were reported involving the gastrointestinal system. : No signs and/or symptoms were reported regarding the genitourinary system. Derm: No deficits noted. Musculoskeletal: No deficits noted. Injury Description: Laceration sustained to forehead. Historical: - Allergies: 10:06 No Known Allergies; bp - PMHx: 10:06 osteoarthritis; Rheumatoid Arthritis; bp - PSHx: 10:06 section; bp - Immunization history:: Adult Immunizations. - Infectious Disease History:: Denies. - Social history:: Smoking status: unknown. Screenin:09 [facility] ED Fall Risk Assessment (Adult) History of falling in the last 3 months, bp including since admission Yes- single mechanical fall (1 pt) Confusion or Disorientation No (0 pts) Intoxicated or Sedated No (0 pts) Impaired Gait No (0 pts) Mobility Assist Device Used No (0 pt) Altered Elimination No (0 pt) Score/Fall Risk Level 0 - 2 = Low Risk Oriented to surroundings. Abuse screen: Denies threats or abuse. Denies injuries from another. Nutritional screening: No deficits noted. Tuberculosis screening: No symptoms or risk factors identified. Assessment: 10:09 General: Appears in no apparent distress. comfortable, obese. bp Vital Signs: 10:05 BP 125 / 71; Pulse 63; Resp 16; Temp 98; Pulse Ox 97% ; bp ED Course: :28 Patient arrived in ED. im 09:30 Katarina Cannon MD is Attending Physician. gb1 09:31 Attending Physician role handed off by Katarina Cannon MD jr11 09:31 Judd Evans MD is Attending Physician. jr11 09:52 CT Head C Spine In Process Unspecified. EDMS 10:04 Skyler Templeton, RN is Primary Nurse. bp 10:06 Triage completed. bp 10:06 Arm band placed on. bp 10:09 Patient has correct armband on for positive identification. bp 10:09 Assist provider with laceration repair on forehead that was 2.5 cm. or less using bp Dermabond. Performed by Judd Evans MD Patient tolerated well. 11:01 Patient did not have IV access during this emergency room visit. bp Administered Medications: 10:10 Drug: Acetaminophen PO 1000 mg PO once Route: PO; bp 11:02 Follow up: Response: No adverse reaction bp Medication: 10:09 VIS not applicable for this client. bp Outcome: 10:27 Discharge ordered by . jr11 11:01 Discharged to home ambulatory, bp 11:01 Condition: stable 11:01 Discharge instructions given to patient, Instructed on discharge instructions, follow up and referral plans. wound care, Demonstrated understanding of instructions, follow-up care, wound care, 11:01 Patient left the ED. bp Signatures: Dispatcher [employer] EDMS Skyler Templeton, RN RN Judd Crespo MD MD jr11 Marily Tony im Katarina Cannon MD MD gb1
--- NOTE | 2024-06-20 10:28 | EDPHYS ---
Physician Documentation [facility] Name: Marely Choi Age: 63 yrs Sex: Female : 1960 Arrival Date: 06/20/2024 Time: 09:24 Bed 9 Private MD: ED Physician Judd Evans HPI: 06/20 10:24 Chief Complaint: Headache following a fall. History of Present Illness: The patient ramo presented after experiencing a fall approximately 30 to 40 minutes prior to the visit. The incident occurred at around 9:00 AM when the patient tripped over an object on the steps while in the backyard, resulting in a fall where the head struck the house. The patient reports a headache but denies vomiting and nausea. Besides the headache, the patient has a few scratches but does not believe there are any fractures. The patient is up to date on tetanus vaccination. There is no use of blood thinners, though the patient takes meloxicam for inflammation and occasionally uses pvhh-qny-[id number] ibuprofen. There is also a mention of the neck popping during the fall, and the patient expressed concern about this. ROS otherwise negative. Review of Systems: - Headache present. - No vomiting. - No nausea. - No additional pain reported except for minor scratches. . Historical: - Allergies: 10:06 No Known Allergies; bp - PMHx: 10:06 osteoarthritis; Rheumatoid Arthritis; bp - PSHx: 10:06 section; bp - Immunization history:: Adult Immunizations. - Infectious Disease History:: Denies. - Social history:: Smoking status: unknown. Exam: 10:24 Constitutional: This is a well developed, well nourished patient who is awake, alert, jr11 and in no acute distress. Head/Face: Normocephalic, 1 cm superficial laceration L upper forehead ENT: Nares patent. No nasal discharge, no septal abnormalities noted. Oropharynx with no redness, swelling, or masses, exudates, or evidence of obstruction, uvula midline. Mucous membranes moist. Neck: Trachea midline, no thyromegaly or masses palpated, and no cervical lymphadenopathy. Supple, full range of motion without nuchal rigidity, or vertebral point tenderness. No Meningismus. Chest/axilla: Normal chest wall appearance and motion. Nontender with no deformity. No lesions are appreciated. Cardiovascular: Regular rate and rhythm with a normal S1 and S2. No gallops, murmurs, or rubs. Normal PMI, no JVD. No pulse deficits. Respiratory: Lungs have equal breath sounds bilaterally, clear to auscultation and percussion. No rales, rhonchi or wheezes noted. No increased work of breathing, no retractions or nasal flaring. Abdomen/GI: Soft, non-tender, with normal bowel sounds. No distension or tympany. No guarding or rebound. No evidence of tenderness throughout. Back: No spinal tenderness. No costovertebral tenderness. Full range of motion. MS/ Extremity: Pulses equal, no cyanosis. Neurovascular intact. Full, normal range of motion. Neuro: Awake and alert, GCS 15, oriented to person, place, time, and situation. No gross motor or sensory deficits. Vital Signs: 10:05 BP 125 / 71; Pulse 63; Resp 16; Temp 98; Pulse Ox 97% ; bp Laceration: 10:24 Wound Repair of 1cm ( 0.4in ) subcutaneous laceration to forehead. Distal jr11 neuro/vascular/tendon intact. Wound prep: Simple cleansing. Skin closed with 1-0 Adhesive skin closure using simple sutures and sterile technique. Patient tolerated well. MDM: 09:36 Medical Screening Exam initiated jr11 10:24 Differential diagnosis: Medical Decision Making: Given the patient's presentation of jr11 headache following a fall, a differential diagnosis includes concussion, skull fracture, intracranial hemorrhage, and cervical spine injury. Concussion is the most likely cause of the headache considering the mechanism of injury and symptoms. However, given the potential for more severe injuries such as a skull fracture or intracranial hemorrhage, a CT scan of the head and neck is warranted to rule out these possibilities. Cervical spine injury is also considered due to the reported neck symptoms during the fall. Plan: - Perform a CT scan of the head and neck to assess for any fractures or internal injuries. - Clean and apply tissue adhesive to the cut. - Monitor for any changes in symptoms, particularly any increase in headache severity or onset of new symptoms such as vomiting or dizziness. - Educate the patient on signs of concussion and when to seek further medical attention. - Follow-up if symptoms persist or worsen. CT head to my read does not show any bleed. Recommended cgot-dlf-ciqxaso analgesia for her headache. 06/20 09:37 Order name: CT Head C Spine; Complete Time: 10:02 jr11 06/20 09:37 Order name: Wound Care; Complete Time: 10:10 jr11 06/20 09:37 Order name: Dermabond; Complete Time: 10: Administered Medications: 10:10 Drug: Acetaminophen PO 1000 mg PO once Route: PO; bp 11:02 Follow up: Response: No adverse reaction bp Disposition Summary: 06/20/24 10:27 Discharge Ordered Notes: Location: Home jr11 Condition: Stable jr11 Diagnosis - Unspecified injury of head, initial encounter jr11 - Facial Laceration/ Laceration without foreign body of cheek and temporomandibular jr11 area Discharge Instructions: - Discharge Summary Sheet jr11 - Head Injury, Adult jr11 - Facial Laceration jr11 Forms: - Medication Reconciliation Form jr11 - Antibiotic Education jr11 - Prescription Opioid Use jr11 - Patient Portal Instructions jr11 - Leadership Thank You Letter jr11 Signatures: Dispatcher [employer] Skyler Swain RN RN Judd Crespo MD MD jr11
[2024-06-20 11:07] VITALS: BP 125/71; TEMP 98; O2SAT 97
== END 2024-06-20 11:01 | disposition home or self-care (01) ==
LOC: ER 09:24
DX: S01.81XA Laceration without foreign body of other part of head, initial encounter (principal); W01.0XXA Fall on same level from slipping, tripping and stumbling without subsequent striking against object, initial encounter
CPT/HCPCS: 70450; 72125

== ENCOUNTER 2024-06-23 10:48 | Emergency (ER) | payer BC ==
--- OUTSIDE RECORDS SUMMARY | 2024-06-23 10:52 | XMS REPORT | Continuity of Care Document ---
Author Name Unknown Address [address] [place] [address] [facility] [place] Address [address] [place] [address] Care Team Providers Care Body Artist Name Role Phone PCP, PATIENT DOES NOT HAVE A Primary Care Physic ADOLFO Painting Attending Clinician Unavailable Ramesh Khalil MD Attending Clinician [phone] RAMESH KHALIL Attending Clinician UnavailRAMESH Bowen Attending Clinician Unavaildanisha boone Doctor Unassigned, Crocker Attending Clinician U Rhett Gill Attending Clinician Unavailable Rhett Laboy Attending Clinician Kavitha Garza DO Attending Clinician [phone] KAVITHA GARZA Attending Clinician Unavailab le Payers Payer Name Policy Type Policy Number Effective Date Expirati on Date Source [employer] [id number] 2018 00:00:00 Problems Condition Name Condition Details Condition Category Status Onset Date Resolution Date Last Treatment Date Treating Clinician Comments Source No known active problems No known active problems Disease [facility] Allergies, Adverse Reactions, Alerts Allergy Name Allergy Type Status Severity Reaction(s) Onset Date Inactive Date Treating Clinician Comments Source NO KNOWN ALLERGIE S Drug Class Active [facility] Social History Social Habit Start Date Stop Date Quantity Comments Source Sexual orientation [facility] Exposure to SARS-CoV-2 (event) 2021-12-03 00:00:00 2021-12-13 09:17:00 Not sure [facility] History of Social function 2021-09-28 00:00:00 2021-09-28 00:00:00 [facility] Sex Assigned At 1960 00:00:00 1960 00:00:00 [facility] Smoking Status Start Date Stop Date Source Tobacco smoking consumption unknown [facility] Medications Ordered Medication Name Filled Medication Name Start Date Stop Date Current Medication? Ordering Clinician Indication Dosage Frequency Signature (SIG) Comments Components Source amoxicillin -clavulanat e 875-125 mg per tablet 2021-03 00:00: 00 Yes [id number] 1{tbl} Take 1 tablet by mouth every 12 (twelve) hours. [facility] doxycycline hyclate 100 mg capsule 2021-03 00:00: 00 Yes [id number] 100mg Take 1 capsule by mouth in the morning and 1 capsule in the evening. [facility] triamcinolo ne acetonide (KENALOG) injection 40 mg 09-28 20:45: 00 09-28 19:40 :00 No [id number] [facility]mg [facility] cyclobenzap rine 5 mg tablet 06-08 00:00: 00 Yes 5mg Take 1 tablet by mouth 2 (two) times daily as needed for Muscle Spasms for up to 15 doses. [facility] ibuprofen (MOTRIN IB) 200 mg tablet 06-08 00:00: 00 Yes 400mg Take 2 tablets by mouth every 6 (six) hours as needed for Pain (scale 1-3) for up to 30 doses. [facility] Vital Signs Vital Name Observation Time Observation Value Comments S juan pablo Body height 2023-05-23 19:20:00 170.2 cm [facility] Body weight 2023-05-23 19:20:00 107.502 kg [facility] BMI 2023-05-23 19:20:00 37.12 kg/m2 [facility] Oxygen saturation in Arterial blood by Pulse oximetry 2021-12-13 13:08:00 98 /min [facility] Systolic blood pressure 2021-12-13 13:08:00 143 mm[Hg] [facility] Diastolic blood pressure 2021-12-13 13:08:00 96 mm[Hg] [facility] Heart rate 2021-12-13 13:08:00 85 /min [facility] Body temperature 2021-12-13 13:08:00 36.72 Marva [facility] Respiratory rate 2021-12-13 13:08:00 18 /min [facility] Body weight 2021-12-13 13:08:00 107.049 kg [facility] BMI 2021-12-13 13:08:00 38.09 kg/m2 [facility] Systolic blood pressure 2021-09-28 19:03:00 122 mm[Hg] [facility] Diastolic blood pressure 2021-09-28 19:03:00 82 mm[Hg] [facility] Heart rate 2021-09-28 19:03:00 88 /min [facility] Body height 2021-09-28 19:03:00 167.6 cm [facility] Body weight 2021-09-28 19:03:00 104.191 kg [facility] BMI 2021-09-28 19:03:00 37.07 kg/m2 [facility] Oxygen saturation in Arterial blood by Pulse oximetry 2021-09-28 19:03:00 98 /min [facility] Procedures Procedure Date / Time Performed Performing Clinicia n Source ASSIGNMENT OF BENEFITS 2023-05-23 19:16:52 Docto r Unassigned, Crocker [facility] EXTERNAL PROVIDER RECORDS 2023-05-15 05:01:00 Doctor Unassigned, Crocker [facility] POCT GLUCOSE(AGE >30DAYS) 2021-12-13 14:16:00 Rhett Adams [facility] CONSENT/REFUSAL FOR DIAGNOSIS AND TREATMENT 2021-12-13 12:59:35 Doctor Unassigned, Crocker [facility] Encounters Start Date/Time End Date/Time Encounter Type Admission Type Attending Clinicians Care Facility Care Department Encounter ID Source 2021-09-13 16:56:09 Outpatient ADOLFO CEBALLOS [facility] [id number] [facility] 2021-08-25 08:32:52 Outpatient ADOLFO CEBALLOS [facility] [id number] [facility] 2023-05-25 00:00:00 2023-05-25 00:00:00 Telephone Star Khalillaquita [facility] [id number] [id number] [id number] [facility] 2023-05-24 00:00:00 2023-05-24 00:00:00 Telephone Ramesh Khalil Monse [facility] 1..840.114 350.1.13.10 4.2.7.2.686 [id number] [facility] 2023-05-23 15:15:00 2023-05-23 15:15:00 Office Visit KhalilRamesh marmolejo [facility] [id number] 350.1.13.10 [id number] [id number] [facility] 2023-05-23 15:15:00 2023-05-23 14:58:05 Outpatient R RAMESH KHALIL [facility] [id number] [facility] 2023-05-23 00:00:00 2023-05-23 00:00:00 Orders Only Doctor Unassigned, Crocker [facility] 1.840.114 350.1.13.10 4.2.7.2.686 [id number] [facility] 2023-05-16 09:35:37 2023-05-16 09:35:37 Outpatient ADA [facility] [id number] Rivera Bee 2023-05-16 00:00:00 2023-05-16 00:00:00 Telephone Ramesh Khalil [facility] 1..840.114 350.1.13.10 4.2.7.2.686 [id number] [facility] 2023-05-15 00:00:00 2023-05-15 00:00:00 Orders Only Doctor Unassigned, Crocker [facility] [id number] 350.1.13.10 4.2.7.2.686 [id number] [facility] 2022-11-28 08:00:29 2022-11-28 08:00:29 Outpatient ADA [facility] [id number] Rivera Bee 2021-12-13 08:14:00 2021-12-13 10:43:00 Emergency X Rhett ADAMS [facility] ERT [id number] [facility] 2021-12-13 08:14:00 2021-12-13 10:43:00 Emergency Rhett Adamsge [facility] 1.840.114 350.1.13.10 4.2.7.2.686 [id number] [facility] 2021-10-03 15:45:00 2021-10-03 15:45:00 Outpatient R KHALIL RAMESH [facility] [id number] [facility] 2021-09-28 14:30:00 2021-09-28 15:26:47 Outpatient R KHALIL RAMESH [facility] [id number] [facility] 2021-09-28 14:30:00 2021-09-28 15:26:47 Office Visit Ramesh Khalil [facility] [id number] 350.1.13.10 4.2.7.2.686 [id number] [facility] 2021-01-24 00:00:00 2021-01-24 00:00:00 Orders Only Doctor Unassigned, Crocker [facility] 1.2840.114 350.1.13.10 4.2.7.2.686 [id number] [facility] 2020-12-09 02:22:00 2020-12-09 05:01:00 Emergency Kavitha Garza [facility] 1.840.114 350.1.13.10 4.2.7.2.686 [id number] [facility] 2020-12-09 02:22:00 2020-12-09 02:22:00 Emergency X KAVITHA GARZA [facility] ERT [id number] [facility] Results Test Description Test Time Test Comments Results Result Co mments Source COMPREHENSIVE METABOLIC [id number] 05:06:53* Test Item Value Reference Range Interpretation Comme nts GLUCOSE (test code = 2217) 110 MG/DL 70-99 H BUN (test code = 2208) 9 MG/DL 8-23 CREATININE (test code = 2214) 0.71 MG/DL 0.60-1.30 eGFR (2020 CKD-EPI) (test code = 10133) 97 ML/MIN/1.73 >60 CALC BUN/CREAT (test code [...] TESTING PERFORMED AT [facility] [address] [place] [address] STAPLE CUTTER: DESTIN SORIANO M.D. [place] NUMBER [id number] [facility] [place]. [id number] HEMOGLOBIN [id number] 04:29:46* Test Item Value Reference Range Interpretation Comme nts HEMOGLOBIN A1c (test code = 03960) 5.2 % 4.2-5.6 POCT GLUCOSE(AGE >30DAYS)2021-12-13 14:16:00* Test Item Value Reference Range Interpretation Comme nts POCT Glu (age>30days) (test code = 3342) 108 mg/dL 70-110 Lab Interpretation (test cod e = 25820-3) Normal [facility] [id number] 14:26:01Name: Marely : 1960 Sex: F - SCR MAMM BILATERAL ALLYSON CAD DIGITALBILATERAL DIGITAL SCREENING MAMMOGRAM 3D/2D WITH CAD: 01/18/2021LINICAL: Asymptomatic. Digital breast tomosynthesis was performed in addition to routine CC and MLO views. Current mammographic images wereevaluated by [employer] CAD (computer-aided detection) software. No prior exams were available for comparison. The tissue of both breasts is predominantly fatty. There are benign calcifications in both breasts. No suspicious mass, architectural distortion, malignant type calcification, orlymph node abnormality detected. IMPRESSION: BENIGNThere is no mammographic evidence of malignancy. Resume annual screening mammography in one year. Jimmie Sweet/jerica:02/02/2021 14:26:01 [employer]ime Plant Operator: Ana Marques MM, [facility] Mammographyletter sent: BIRADS 1-2 Normal Mammogram BI-RADS: 2 Benign Notes Date/Time Note Provider Source 2023-05-25 12:20:12 Received External MRI Results from [facility]. Scanned and uploaded into patient's chart. Placed in Provider box for Review. Bettina Olmos [facility] 2023-05-25 09:22:14 Tried contacting patient to see what was needed on her note;restrictions or not ? Received automated message asking for reason for call, then the phone just repeatedly rang. Unable to leave Shonda Kruse MA 05/25/2023 9:23 AM Shonda Kruse MA [facility] 2023-05-24 12:03:48 Patient states she was seen yesterday and she is needing a note to return back to work. She is requesting it be sent to her job by fax. Fax number [phone], Attn: Zach Rose Carlos [facility]
[2024-06-23] MEDS ORDERED: KETOROLAC 30 MG/ML INJ ONE (11:36)
--- NOTE | 2024-06-23 12:16 | RAD REPORT ---
EXAM: Chest Single View HISTORY: 63 years Female BLUNT CHEST TRAUMA COMPARISON: 04/20/2024 FINDINGS: LUNGS/PLEURA: Chronic interstitial prominence. This may reflect vascular congestion. No definite alve olar edema. No pneumothorax. CARDIAC/MEDIASTINUM: The cardiac silhouette is within normal limits. UPPER ABDOMEN: No significant abnormality. BONES: No acute abnormality. LINES/TUBES/OTHER: N/A IMPRESSION: Possible pulmonary vascular congestion.
[2024-06-23 14:19] LABS: Absolute Eosinophils 0.2 K/uL (0-0.5); Absolute Monocytes 0.4 K/uL (0.1-1.3); Absolute Neutrophil 2.6 K/uL (1.8-8.0); Basophils % 0.8 % (0-1.3); Eosinophils % 3.7 % (0-4.4); Hematocrit 42.6 % (36.0-45.0); Hemoglobin 14.9 g/dL (12.0-15.0); Lymphocytes % 23.7 % (15.3-44.8); MCH 35.2 pg (27.0-35.0); MCV 100.6 fL (80-100); MPV 7.8 fL (7.6-11.3); Monocytes % 9.8 % (3.3-12.3); Nucleated Red Blood Cells % 0.1 % (0-0); Platelets 154 thou/uL (152-406); RBC Red Blood Cell Count 4.23 M/uL (3.86-4.86); Red Cell Distribution Width 13.6 % (12.1-15.2)
[2024-06-23 14:24] LABS: PT Prothrombin Time 11.7 SECONDS (10-13.0); Protime INR 1.03
[2024-06-23 14:38] LABS: Anion Gap 6.1 mEq/L (5.0-15.0); Potassium 4.1 mEq/L (3.5-5.1); Troponin High Sensitivity 3.3 pg/mL (<58.9)
--- NOTE | 2024-06-23 14:46 | EDPHYS ---
Physician Documentation [facility] Name: Marely Choi Age: 63 yrs Sex: Female : 1960 Arrival Date: 06/23/2024 Time: 10:48 Bed 14 Private MD: ED Physician Katarina Cannon HPI: 06/23 14:40 This 63 yrs old Female presents to ER via Ambulatory with complaints of Arm gb1 Pain - left, Left breast pain. 14:40 63-year-old female with left chest wall pain and left breast pain since a fall that she gb1 had a few days ago. She has history of osteoarthritis and rheumatoid arthritis. She was here to be evaluated for the fall but then a few days later the left chest started to hurt. She denies any shortness of breath, fever or cough. She has not had a mammogram in many years and denies any nipple discharge or feeling any lumps in her breast.. Historical: - Allergies: 11:01 No Known Allergies; jl7 - PMHx: 11:01 osteoarthritis; Rheumatoid Arthritis; jl7 - PSHx: 11:01 section; jl7 - Immunization history:: Adult Immunizations unknown. - Infectious Disease History:: Denies. - Social history:: Smoking status: Patient reports the use of cigarette tobacco products, smokes one-half pack cigarettes per day. Exam: 14:40 Constitutional: This is a well developed, well nourished patient who is awake, alert, gb1 and in no acute distress. Head/Face: Normocephalic, atraumatic. Eyes: Pupils equal round and reactive to light, extra-ocular motions intact. Lids and lashes normal. Conjunctiva and sclera are non-icteric and not injected. Cornea within normal limits. Periorbital areas with no swelling, redness, or edema. ENT: Nares patent. No nasal discharge, no septal abnormalities noted. Tympanic membranes are normal and external auditory canals are clear. Oropharynx with no redness, swelling, or masses, exudates, or evidence of obstruction, uvula midline. Mucous membranes moist. Neck: Trachea midline, no thyromegaly or masses palpated, and no cervical lymphadenopathy. Supple, full range of motion without nuchal rigidity, or vertebral point tenderness. No Meningismus. Chest/axilla: Normal chest wall appearance and motion. Left chest wall about the left breast is mildly tender breast exam is negative for any palpable masses. No cervical or axillary lymphadenopathy palpated, No lesions are appreciated. Cardiovascular: Regular rate and rhythm with a normal S1 and S2. No gallops, murmurs, or rubs. Normal PMI, no JVD. No pulse deficits. Respiratory: Lungs have equal breath sounds bilaterally, clear to auscultation and percussion. No rales, rhonchi or wheezes noted. No increased work of breathing, no retractions or nasal flaring. Abdomen/GI: Soft, non-tender, with normal bowel sounds. No distension or tympany. No guarding or rebound. No evidence of tenderness throughout. Back: No spinal tenderness. No costovertebral tenderness. Full range of motion. Skin: Warm, dry with normal turgor. Normal color with no rashes, no lesions, and no evidence of cellulitis. Vital Signs: 10:58 BP 132 / 80; Pulse 84; Resp 17; Temp 97.9; Pulse Ox 98% ; Weight 107.05 kg; Height 5 jl7 ft. 6 in. ; Pain 0/10; 13:12 BP 142 / 76; Pulse 76; Resp 16; Pulse Ox 97% ; db 14:00 BP 127 / 78; Pulse 74; Resp 16; Pulse Ox 97% ; db 14:30 BP 126 / 90; Pulse 78; Resp 17; Pulse Ox 97% ; db 10:58 Body Mass Index 38.09 (107.05 kg, 167.64 cm) jl7 10:58 Pain Scale: Adult jl7 MDM: 10:58 Medical Screening Exam initiated gb1 14:40 Data reviewed: vital signs, nurses notes, lab test result(s), cardiac enzymes, troponin gb1 i, CBC, white blood cell count, hemoglobin, hematocrit, platelets, electrolytes, sodium, potassium, chloride, serum bicarbonate, BUN, creatinine, serum glucose, EKG. 14:40 ED course: 63-year-old female status post a ground-level fall about a week ago, she was gb1 seen and evaluated for that trauma previously but then subsequently had left chest wall tenderness and left breast pain. Exam here was negative for any focal deformities chest x-ray is negative for any signs of rib fracture or other acute findings. There was some area of pulmonary vascular congestion but no overt pulmonary edema. Patient has no signs of increased work of breathing or shortness of breath. At this time I will discharge her home and give her close return precautions for NSAIDs for pain. Patient at this time is compliant with this plan of care discharge and agreeable. She has been given this with return precautions which she complied to prior to discharge home today.. 14:45 ED course: EKG shows normal sinus rhythm at 76 bpm normal intervals and axis. No gb1 concern for any lateralizing changes no reciprocal changes she has no ischemic changes ST T wave looks normal. QTc is 452 normal intervals and axis. EKG was completed at 1344. 06/23 12:27 Order name: Basic Metabolic Panel; Complete Time: 14:39 gb1 06/23 12:27 Order name: CBC with Diff; Complete Time: 14:39 gb1 06/23 12:27 Order name: NT PRO-BNP; Complete Time: 14:39 gb1 06/23 12:27 Order name: PT-INR; Complete Time: 14:39 gb1 06/23 12:27 Order name: Troponin HS; Complete Time: 14:39 gb1 06/23 11:22 Order name: Chest Single View XRAY; Complete Time: 12:25 gb06/23 12:27 Order name: EKG; Complete Time: 12:27 gb1 06/23 12:27 Order name: Cardiac monitoring; Complete Time: 14:01 gb06/23 12:27 Order name: EKG - Nurse/Tech; Complete Time: 14:01 gb06/23 12:27 Order name: IV Saline Lock; Complete Time: 14:13 gb06/23 12:27 Order name: Labs collected and sent; Complete Time: 14:13 gb06/23 12:27 Order name: O2 Per Protocol; Complete Time: 13:36 gb06/23 12:27 Order name: O2 Sat Monitoring; Complete Time: 13:36 gb Administered Medications: 11:55 Drug: Ketorolac IM 60 mg IM once Route: IM; Site: right ventrogluteal; db 13:36 Follow up: Response: No adverse reaction; Pain is decreased db Disposition Summary: 06/23/24 14:46 Discharge Ordered Notes: Location: Home gb1 Problem: new gb1 Symptoms: have improved gb1 Condition: Stable gb1 Diagnosis - Chest pain, unspecified gb1 Followup: gb1 - With: Private Physician - When: - Reason: If symptoms return Discharge Instructions: - Discharge Summary Sheet gb1 - Chest Wall Pain gb1 Forms: - Work release form db - Family Work Release db - Medication Reconciliation Form gb1 - Antibiotic Education gb1 - Prescription Opioid Use gb1 - Patient Portal Instructions gb1 - Leadership Thank You Letter gb1 Signatures: Dispatcher [employer] Alison Barcenas RN RN jl7 Ivelisse Haile RN RN db Katarina Cannon MD MD gb1
--- NOTE | 2024-06-23 14:46 | ER ---
Nurse's Notes [facility] Name: Marely Choi Age: 63 yrs Sex: Female : 1960 Arrival Date: 06/23/2024 Time: 10:48 Bed 14 Private MD: Diagnosis: Chest pain, unspecified Presentation: 06/23 10:58 Chief complaint: Patient states: Mechanical fall on Sunday reporting pain to left arm, jl7 axilla, breast/chest wall. Rated 0/10 but on movement pain is 8/10. Coronavirus screen: At this time, the client does not indicate any symptoms associated with coronavirus-19. Ebola Screen: No symptoms or risks identified at this time. Initial Sepsis Screen: Does the patient meet any 2 criteria? No. Patient's initial sepsis screen is negative. Does the patient have a suspected source of infection? No. Patient's initial sepsis screen is negative. Risk Assessment: Do you want to hurt yourself or someone else? Patient reports no desire to harm self or others. Onset of symptoms was June 21, 2024. 10:58 Method Of Arrival: Ambulatory [facility] 10:58 Acuity: MER 4 jl7 Triage Assessment: 11:01 General: Appears in no apparent distress. uncomfortable, Behavior is calm, cooperative, jl7 appropriate for age. Pain: Complains of pain in left arm Pain currently is 0 out of 10 on a pain scale. at worst was 8 out of 10 on a pain scale. Historical: - Allergies: 11:01 No Known Allergies; jl7 - PMHx: 11:01 osteoarthritis; Rheumatoid Arthritis; jl7 - PSHx: 11:01 section; jl7 - Immunization history:: Adult Immunizations unknown. - Infectious Disease History:: Denies. - Social history:: Smoking status: Patient reports the use of cigarette tobacco products, smokes one-half pack cigarettes per day. Screenin:00 [facility] ED Fall Risk Assessment (Adult) History of falling in the last 3 months, db including since admission No falls in past 3 months (0 pts) Confusion or Disorientation No (0 pts) Intoxicated or Sedated No (0 pts) Impaired Gait No (0 pts) Mobility Assist Device Used No (0 pt) Altered Elimination No (0 pt) Score/Fall Risk Level 0 - 2 = Low Risk Oriented to surroundings, Maintained a safe environment. Abuse screen: Denies threats or abuse. Denies injuries from another. Nutritional screening: No deficits noted. Tuberculosis screening: No symptoms or risk factors identified. Assessment: 11:17 Reassessment: Patient appears in no apparent distress at this time. Patient and/or db family updated on plan of care and expected duration. Pain level reassessed. Patient is alert, oriented x 3, equal unlabored respirations, skin warm/dry/pink. 12:09 Reassessment: PT AMBULATORY TO RESTROOM. db 14:30 Reassessment: Patient appears in no apparent distress at this time. Patient and/or db family updated on plan of care and expected duration. Pain level reassessed. Patient is alert, oriented x 3, equal unlabored respirations, skin warm/dry/pink. Patient states feeling better. Patient states symptoms have improved. General: Appears in no apparent distress. comfortable, Behavior is calm, cooperative. Pain: Denies pain. Neuro: Level of Consciousness is awake, alert, obeys commands, Oriented to person, place, time. Vital Signs: 10:58 BP 132 / 80; Pulse 84; Resp 17; Temp 97.9; Pulse Ox 98% ; Weight 107.05 kg; Height 5 jl7 ft. 6 in. ; Pain 0/10; 13:12 BP 142 / 76; Pulse 76; Resp 16; Pulse Ox 97% ; db 14:00 BP 127 / 78; Pulse 74; Resp 16; Pulse Ox 97% ; db 14:30 BP 126 / 90; Pulse 78; Resp 17; Pulse Ox 97% ; db 10:58 Body Mass Index 38.09 (107.05 kg, 167.64 cm) jl7 10:58 Pain Scale: Adult jl7 ED Course: 10:50 Patient arrived in ED. im 10:50 Katarina Cannon MD is Attending Physician. gb1 11:01 Triage completed. jl7 11:01 Arm band placed on right wrist. jl7 11:17 Ivelisse Haile, ELROY is Primary Nurse. db 12:09 Patient has correct armband on for positive identification. Bed in low position. Call db light in reach. Side rails up X 1. Pulse ox on. NIBP on. 12:09 No provider procedures requiring assistance completed. db 12:12 Chest Single View XRAY In Process Unspecified. EDMS 15:00 Provided Education on: DISCHARGE AND FOLLOWUP. Warm blanket given. Pillow given. db 15:00 IV discontinued, intact, bleeding controlled, No redness/swelling at site. db Administered Medications: 11:55 Drug: Ketorolac IM 60 mg IM once Route: IM; Site: right ventrogluteal; db 13:36 Follow up: Response: No adverse reaction; Pain is decreased db Medication: 15:00 VIS not applicable for this client. db Outcome: 14:46 Discharge ordered by . gb1 15:00 Discharged to home ambulatory, with family, db 15:00 Condition: stable 15:00 Discharge instructions given to patient, Instructed on discharge instructions, follow up and referral plans. 15:21 Patient left the ED. db Signatures: Dispatcher [employer] Alison Barcenas RN RN jl7 Ivelisse Haile RN RN Marily Carpenter Gina, MD MD gb1
[2024-06-23 16:02] VITALS: BP 132/80; TEMP 97.9; O2SAT 98
--- NOTE | 2024-06-25 12:42 | EKG ---
Test Date: 2024-06-23 Test Time: 13:44:21 Conservation Planner: OCTAVIO MEASUREMENT RESULTS: Intervals: Rate: 76 IN: 172 QRSD: 90 QT: 402 QTc: 452 [place]: P: 63 IN: 172 QRS: 55 T: 43 INTERPRETIVE STATEMENTS: Normal sinus rhythm Low voltage QRS Borderline ECG Compared to ECG 08/27/2019 12:44:55 Low QRS voltage now present Electronically Signed On 06-25-24 12:37:35 CDT by Janusz Whiting
== END 2024-06-23 15:21 | disposition home or self-care (01) ==
LOC: ER 10:48
DX: R07.9 Chest pain, unspecified (principal); F17.200 Nicotine dependence, unspecified, uncomplicated
CPT/HCPCS: 36415; 71045; 80048; 83880; 84484; 85025; 85610; 93005; 96372; 99284

== ENCOUNTER 2024-07-07 11:21 | Emergency (ER) | payer BC ==
--- OUTSIDE RECORDS SUMMARY | 2024-07-07 11:26 | XMS REPORT | Continuity of Care Document ---
Author Name Unknown Address [address] [place] [address] [address] [facility] [place] Address [address] [place] [address] Care Team Providers Care Pediatric Psychiatrist Name Role Phone PCP, PATIENT DOES NOT HAVE A Primary Care Physic ADOLFO Painting Attending Clinician Unavailable Ramesh Khalil MD Attending Clinician [phone] RAMESH KHALIL Attending Clinician UnavailRAMESH Bowen Attending Clinician Unavaildanisha boone Doctor Unassigned, Edson Attending Clinician U Rhett Gill Attending Clinician Unavailable Rhett Laboy Attending Clinician [phone] Kavitha Garza DO Attending Clinician [phone] KAVITHA GARZA Attending Clinician Unavailab le Payers Payer Name Policy Type Policy Number Effective Date Expirati on Date Source [employer] [id number] 2018 00:00:00 Problems Condition Name Condition Details Condition Category Status Onset Date Resolution Date Last Treatment Date Treating Clinician Comments Source No known active problems No known active problems Disease [facility] Allergies, Adverse Reactions, Alerts Allergy Name Allergy Type Status Severity Reaction(s) Onset Date Inactive Date Treating Clinician Comments Source NO KNOWN ALLERGIE S Drug Class Active [facility] Social History Social Habit Start Date Stop Date Quantity Comments Source Sexual orientation [facility] Exposure to SARS-CoV-2 (event) 2021-12-03 00:00:00 2021-12-13 09:17:00 Not sure [facility] History of Social function 2021-09-28 00:00:00 2021-09-28 00:00:00 [facility] Sex Ass[birth year] At 1960 00:00:00 1960 00:00:00 [facility] Smoking Status Start Date Stop Date Source Tobacco smoking consumption unknown [facility] Medications Ordered Medication Name Filled Medication Name Start Date Stop Date Current Medication? Ordering Clinician Indication Dosage Frequency Signature (SIG) Comments Components Source amoxicillin -clavulanat e 875-125 mg per tablet 2021-03 00:00: 00 Yes [id number] 1{tbl} Take 1 tablet by mouth every 12 (twelve) hours. [facility] acute hospital doxycycline hyclate 100 mg capsule 2021-03 00:00: 00 Yes [id number] 100mg Take 1 capsule by mouth in the morning and 1 capsule in the evening. General acute hospital triamcinolo ne acetonide (KENALOG) injection 40 mg 09-28 20:45: 00 09-28 19:40 :[id number] [facility] cyclobenzap rine 5 mg tablet 06-08 00:00: 00 Yes 5mg Take 1 tablet by mouth 2 (two) times daily as needed for Muscle Spasms for up to 15 doses. General acute hospital ibuprofen (MOTRIN IB) 200 mg tablet 06-08 00:00: 00 Yes 400mg Take 2 tablets by mouth every 6 (six) hours as needed for Pain (scale 1-3) for up to 30 doses. General acute hospital Vital Signs Vital Name Observation Time Observation Value Comments S juan pablo Body height 2023-05-23 19:20:00 170.2 cm [facility] Body weight 2023-05-23 19:20:00 107.502 kg [facility] BMI 2023-05-23 19:20:00 37.12 kg/m2 [facility] Oxygen saturation in Arterial blood by Pulse oximetry 2021-12-13 13:08:00 98 /min [facility] Systolic blood pressure 2021-12-13 13:08:00 143 mm[Hg] [facility] Diastolic blood pressure 2021-12-13 13:08:00 96 mm[Hg] [facility] Heart rate 2021-12-13 13:08:00 85 /min [facility] Body temperature 2021-12-13 13:08:00 36.72 Marva [facility] Respiratory rate 2021-12-13 13:08:00 18 /min [facility] Body weight 2021-12-13 13:08:00 107.049 kg [facility] BMI 2021-12-13 13:08:00 38.09 kg/m2 [facility] Systolic blood pressure 2021-09-28 19:03:00 122 mm[Hg] [facility] Diastolic blood pressure 2021-09-28 19:03:00 82 mm[Hg] [facility] Heart rate 2021-09-28 19:03:00 88 /min [facility] Body height 2021-09-28 19:03:00 167.6 cm [facility] Body weight 2021-09-28 19:03:00 104.191 kg [facility] BMI 2021-09-28 19:03:00 37.07 kg/m2 [facility] Oxygen saturation in Arterial blood by Pulse oximetry 2021-09-28 19:03:00 98 /min [facility] Procedures Procedure Date / Time Performed Performing Clinicia n Source ASSIGNMENT OF BENEFITS 2023-05-23 19:16:52 Docto r Unassigned, Edson [facility] EXTERNAL PROVIDER RECORDS 2023-05-15 05:01:00 Doctor Unassigned, Edson [facility] POCT GLUCOSE(AGE >30DAYS) 2021-12-13 14:16:00 Rhett Adams [facility] CONSENT/REFUSAL FOR DIAGNOSIS AND TREATMENT 2021-12-13 12:59:35 Doctor Unassigned, Edson [facility] Encounters Start Date/Time End Date/Time Encounter Type Admission Type Attending Clinicians Care Facility Care Department Encounter ID Source 2021-09-13 16:56:09 Outpatient ADOLFO CEBALLOS [facility] [id number] [facility] 2021-08-25 08:32:52 Outpatient ADOLFO CEBALLOS [facility] [id number] [facility] 2023-05-25 00:00:00 2023-05-25 00:00:00 Telephone Star Khalillaquita Shea [facility] [id number] 350.1.13.10 4.2.7.2.686 [id number] General acute hospital 2023-05-24 00:00:00 2023-05-24 00:00:00 Telephone Ramesh Khalil [facility] 1..840.114 350.1.13.10 4.2.7.2.686 [id number] General acute hospital 2023-05-23 15:15:00 2023-05-23 15:15:00 Office Visit KhalilRamesh marmolejo [facility] [id number] 350.1.13.10 4.2.7.2.686 [id number] General acute hospital 2023-05-23 15:15:00 2023-05-23 14:58:05 Outpatient R RAMESH KHALIL CRAIG [facility] [id number] General acute hospital 2023-05-23 00:00:00 2023-05-23 00:00:00 Orders Only Doctor Unassigned, Edson [facility] 1.840.114 350.1.13.10 4.2.7.2.686 [id number] General acute hospital 2023-05-16 09:35:37 2023-05-16 09:35:37 Outpatient ADA [facility] [id number] Rivera Bee 2023-05-16 00:00:00 2023-05-16 00:00:00 Telephone Ramesh Khalil [facility] 1..840.114 350.1.13.10 4.2.7.2.686 [id number] General acute hospital 2023-05-15 00:00:00 2023-05-15 00:00:00 Orders Only Doctor Unassigned, Edson [facility] 1.2840.114 350.1.13.10 4.2.7.2.686 [id number] General acute hospital 2022-11-28 08:00:29 2022-11-28 08:00:29 Outpatient ADA [facility] [id number] Rivera Bee 2021-12-13 08:14:00 2021-12-13 10:43:00 Emergency X Rhett ADAMS [facility] E[facility] [id number] General acute hospital 2021-12-13 08:14:00 2021-12-13 10:43:00 Emergency Rhett Adamsge [facility] 1.840.114 350.1.13.10 4.2.7.2.686 [id number] General acute hospital 2021-10-03 15:45:00 2021-10-03 15:45:00 Outpatient R KHALIL RAMESH [facility] [id number] General acute hospital 2021-09-28 14:30:00 2021-09-28 15:26:47 Outpatient R KHALIL RAMESH [facility] [id number] General acute hospital 2021-09-28 14:30:00 2021-09-28 15:26:47 Office Visit Ramesh Khalil [facility] 1.2.840.114 350.1.13.10 4.2.7.2.686 [id number] General acute hospital 2021-01-24 00:00:00 2021-01-24 00:00:00 Orders Only Doctor Unassigned, Edson [facility] 1.2840.114 350.1.13.10 4.2.7.2.686 [id number] General acute hospital 2020-12-09 02:22:00 2020-12-09 05:01:00 Emergency Kavitha Garza [facility] 1.840.114 350.1.13.10 4.2.7.2.686 [id number] General acute hospital 2020-12-09 02:22:00 2020-12-09 02:22:00 Emergency X KAVITHA GARZA [facility] ERT [id number] General acute hospital Results Test Description Test Time Test Comments Results Result Co mments Source COMPREHENSIVE METABOLIC [id number] 05:06:53* Test Item Value Reference Range Interpretation Comme nts GLUCOSE (test code = 2217) 110 MG/DL 70-99 H BUN (test code = 2208) 9 MG/DL 8-23 CREATININE (test code = 2214) 0.71 MG/DL 0.60-1.30 eGFR (2020 CKD-EPI) (test code = 46174) 97 ML/MIN/1.73 >60 CALC BUN/CREAT (test code [...] TESTING PERFORMED AT [facility] [address] [place] [id number] PRODUCE TEAM LEAD: DESTIN SORIANO M.D. [place] NUMBER [id number] [facility] [place]. [id number] HEMOGLOBIN [id number] 04:29:46* Test Item Value Reference Range Interpretation Comme nts HEMOGLOBIN A1c (test code = 94890) 5.2 % 4.2-5.6 POCT GLUCOSE(AGE >30DAYS)2021-12-13 14:16:00* Test Item Value Reference Range Interpretation Comme nts POCT Glu (age>30days) (test code = 3342) 108 mg/dL 70-110 Lab Interpretation (test cod e = 17948-0) [facility] [place] CAD [id number] 14:26:01Name: Marely : 1960 Sex: F - SCR MAMM BILATERAL ALLYSON CAD DIGITALBILATERAL DIGITAL SCREENING MAMMOGRAM 3D/2D WITH CAD: 01/18/2021LINICAL: Asymptomatic. Digital breast tomosynthesis was performed in addition to routine CC and MLO views. Current mammographic images wereevaluated by [employer] CAD (computer-aided detection) software. No prior exams were available for comparison. The tissue of both breasts is predominantly fatty. There are benign calcifications in both breasts. No suspicious mass, architectural distortion, malignant type calcification, orlymph node abnormality detected. IMPRESSION: BENIGNThere is no mammographic evidence of malignancy. Resume annual screening mammography in one year. Jimmie Sweet/jerica:02/02/2021 14:26:01 Supervisor Phosphoric Acid: Ana Marques MM, [facility] Mammographyletter sent: BIRADS 1-2 Normal Mammogram BI-RADS: 2 Benign Notes Date/Time Note Provider Source 2023-05-25 12:20:12 Received External MRI Results from [facility]. Scanned and uploaded into patient's chart. Placed in Provider box for Review. Bettina Olmos [facility] 2023-05-25 09:22:14 Tried contacting patient to see what was needed on her note;restrictions or not ? Received automated message asking for reason for call, then the phone just repeatedly rang. Unable to leave Shonda Kruse MA 05/25/2023 9:23 AM Shonda Kruse MA [facility] 2023-05-24 12:03:48 Patient states she was seen yesterday and she is needing a note to return back to work. She is requesting it be sent to her job by fax. Fax number [phone], Attn: Zach Rose Carlos [facility]
--- NOTE | 2024-07-07 14:28 | RAD REPORT ---
Procedure: Chest Pa And Lat (2 Views) HISTORY: Cough COMPARISON: April 2024 FINDINGS: The lungs appear clear of acute infiltrate. No significant pleural effusion noted. The heart is normal size. IMPRESSION: No acute abnormality is displayed.
[2024-07-07] MEDS ORDERED: IPRATROPIUM BROM 0.5MG/2.5ML ONE (14:41)
[2024-07-07] MEDS ORDERED: ALBUTEROL 2.5 MG/3 ML NEB SOL ONE (14:41)
[2024-07-07] MEDS ORDERED: ACETAMINOPHEN 500 MG TAB ONE (14:41)
[2024-07-07 15:01] LABS: SARS-CoV-2 Antigen Rapid Res Negative (Negative)
--- NOTE | 2024-07-07 15:11 | ER ---
Nurse's Notes [facility] Name: Marely Choi Age: 63 yrs Sex: Female : 1960 Arrival Date: 07/07/2024 Time: 11:21 Bed 20 Private MD: Diagnosis: Acute upper respiratory infection, unspecified Presentation: 07/07 12:31 Chief complaint: Patient states: she has been coughing, sneezing and having body aches ap3 for a few days. patient reports taking dayquil with no relief. Coronavirus screen: Client presents with at least one sign or symptom that may indicate coronavirus-19. Ebola Screen: No symptoms or risks identified at this time. Onset: The symptoms/episode began/occurred gradually. Initial Sepsis Screen: Does the patient meet any 2 criteria? No. Patient's initial sepsis screen is negative. Does the patient have a suspected source of infection? No. Patient's initial sepsis screen is negative. Risk Assessment: Do you want to hurt yourself or someone else? Patient reports no desire to harm self or others. Onset of symptoms was July 05, 2024. 12:31 Method Of Arrival: Ambulatory ap3 12:31 Acuity: MER 3 ap3 Triage Assessment: 12:33 General: Appears in no apparent distress. Behavior is calm, cooperative, appropriate ap3 for age. Pain: Complains of pain in generalized body aches. Neuro: Level of Consciousness is awake, alert, obeys commands, Oriented to person, place, time, situation. Cardiovascular: Patient's skin is warm and dry. Respiratory: Reports cough that is Airway is patent Respiratory effort is even, unlabored. 12:34 General: Reports chills for fever for feeling ill for fatigue for. ap3 Historical: - Allergies: 12:33 No Known Allergies; ap3 - PMHx: 12:33 osteoarthritis; Rheumatoid Arthritis; ap3 - PSHx: 12:33 section; ap3 - Immunization history:: Client reports receiving the 2nd dose of the Covid vaccine, Flu vaccine is up to date. - Infectious Disease History:: Denies. - Social history:: Smoking status: Patient reports the use of cigarette tobacco products, smokes one pack cigarettes per day. Screenin:34 [facility] ED Fall Risk Assessment (Adult) History of falling in the last 3 months, ap3 including since admission No falls in past 3 months (0 pts) Confusion or Disorientation No (0 pts) Intoxicated or Sedated No (0 pts) Impaired Gait No (0 pts) Mobility Assist Device Used No (0 pt) Altered Elimination No (0 pt) Score/Fall Risk Level 0 - 2 = Low Risk Oriented to surroundings, Maintained a safe environment, Educated pt \T\ family on fall prevention, incl call for assistance when getting out of bed, Assessed \T\ reinforced patient's understanding of fall precautions, Hourly rounding (assess needs \T\ fall precautionary measures) done, Used ambulatory aids as needed (educated on \T\ assisted with). Abuse screen: Denies threats or abuse. Nutritional screening: No deficits noted. Tuberculosis screening: No symptoms or risk factors identified. Assessment: 14:25 General: Appears ill, Behavior is calm, cooperative, appropriate for age. Pain: me1 Complains of pain in generalized Pain does not radiate. Pain currently is 7 out of 10 on a pain scale. Quality of pain is described as aching, Pain began suddenly, Is continuous. Neuro: Level of Consciousness is awake, alert, obeys commands, Oriented to person, place, time, situation, Appropriate for age. Cardiovascular: Patient's skin is warm and dry. Respiratory: Reports shortness of breath on exertion cough that is persistent Airway is patent Respiratory effort is even, unlabored, Respiratory pattern is regular, symmetrical. GI: No signs and/or symptoms were reported involving the gastrointestinal system. : No signs and/or symptoms were reported regarding the genitourinary system. EENT: No signs and/or symptoms were reported regarding the EENT system. Derm: Skin is intact, is healthy with good turgor, Skin is pink, warm \T\ dry. Musculoskeletal: No signs and/or symptoms reported regarding the musculoskeletal system. Vital Signs: 12:31 BP 128 / 79; Pulse 76; Resp 19; Temp 100.4; Pulse Ox 97% ; Weight 106.59 kg; Height 5 ap3 ft. 6 in. ; Pain 6/10; 15:03 BP 109 / 75; Pulse 83; Resp 19; Pulse Ox 100% ; me1 15:27 BP 135 / 74; Pulse 74; Resp 17; Temp 99.4; Pulse Ox 97% ; me1 12:31 Body Mass Index 37.93 (106.59 kg, 167.64 cm) ap3 12:31 Pain Scale: Adult ap3 ED Course: 11:26 Patient arrived in ED. cj3 11:35 April Godinez PA-C is PHCP. sb4 11:35 Ab Taylor MD is Attending Physician. sb4 12:33 Triage completed. ap3 12:34 Arm band placed on right wrist. ap3 13:19 Chest Pa And Lat (2 Views) XRAY In Process Unspecified. EDMS 14:25 Patient has correct armband on for positive identification. Bed in low position. Call me1 light in reach. Side rails up X2. Provided Education on: POC. Verbalized understanding.. Client placed on continuous cardiac and pulse oximetry monitoring. NIBP monitoring applied. Pulse ox on. NIBP on. 14:25 No provider procedures requiring assistance completed. me1 14:26 Sejal Paulson, RN is Primary Nurse. me1 14:46 COVID swab sent to lab. me1 15:28 Patient did not have IV access during this emergency room visit. me1 Administered Medications: 14:46 Drug: Acetaminophen PO 1000 mg PO once Route: PO; me1 15:27 Follow up: Response: No adverse reaction; Temperature is decreased me1 14:46 Drug: DuoNeb Nebulize (3:1) (2.5 mg - 0.5 mg) 3 ml Nebulizer once Route: Nebulizer; me1 15:03 Follow up: Response: No adverse reaction; Wheezing diminished me1 15:27 Follow up: Response: No adverse reaction; Wheezing diminished me1 Medication: 14:25 VIS not applicable for this client. me1 Outcome: 15:10 Discharge ordered by . sb4 15:28 Discharged to home ambulatory, with family, me1 15:28 Condition: stable 15:28 Discharge instructions given to patient, Instructed on discharge instructions, follow up and referral plans. medication usage, Demonstrated understanding of instructions, follow-up care, medications, Prescriptions given X 2, 15:28 Patient left the ED. me1 Signatures: Dispatcher [employer] EDIdania Diop RN RN ap3 April Godinez PA-C PA-C sb4 Sejal Paulson RN RN me1 Huma Hoffman cj3 Corrections: (The following items were deleted from the chart) 14:28 12:31 Chief complaint: Patient states: she has been coughing, sneezing and having body me1 aches for a few days. patient reports taking dayquil with no relief. ap3 15:00 12:31 Chief complaint: Patient states: she has been coughing, sneezing and having body me1 aches for a few days. patient reports taking dayquil with no relief. me1
--- NOTE | 2024-07-07 15:11 | EDPHYS ---
Physician Documentation [facility] Name: Marely Choi Age: 63 yrs Sex: Female : 1960 Arrival Date: 07/07/2024 Time: 11:21 Bed 20 Private MD: ED Physician Ab Taylor HPI: 07/07 13:15 This 63 yrs old Female presents to ER via Ambulatory with complaints of Doesn't Feel sb4 Right, Cough, Sneezing, Body Aches. 13:15 Patient reports cough, runny nose, wheezing, malaise x 3 days. States that she has been sb4 taking [id number] medications without significant relief in symptoms. Denies any nausea, vomiting, diarrhea. Denies any sick contacts. Denies any chronic medical problems or daily medication. Historical: - Allergies: 12:33 No Known Allergies; ap3 - PMHx: 12:33 osteoarthritis; Rheumatoid Arthritis; ap3 - PSHx: 12:33 section; ap3 - Immunization history:: Client reports receiving the 2nd dose of the Covid vaccine, Flu vaccine is up to date. - Infectious Disease History:: Denies. - Social history:: Smoking status: Patient reports the use of cigarette tobacco products, smokes one pack cigarettes per day. ROS: 13:15 Cardiovascular: Negative for chest pain, palpitations, and edema, sb4 13:15 Constitutional: Positive for malaise, 13:15 ENT: Positive for hoarseness, rhinorrhea, 13:15 Respiratory: Positive for cough, wheezing, 13:15 All other systems are negative, Exam: 13:15 Head/Face: Normocephalic, atraumatic. Eyes: Extra-ocular motions intact. Periorbital sb4 areas with no swelling, redness, or edema. ENT: Mucous membranes moist. Cardiovascular: Regular rate and rhythm with a normal S1 and S2. Respiratory: No increased work of breathing, no retractions or nasal flaring. Skin: Warm, dry with normal turgor. Normal color with no rashes, no lesions, and no evidence of cellulitis. 13:15 Constitutional: The patient appears alert, awake, obviously ill, 13:15 Respiratory: Breath sounds: wheezing: expiratory that is mild, is scattered, Vital Signs: 12:31 BP 128 / 79; Pulse 76; Resp 19; Temp 100.4; Pulse Ox 97% ; Weight 106.59 kg; Height 5 ap3 ft. 6 in. ; Pain 6/10; 15:03 BP 109 / 75; Pulse 83; Resp 19; Pulse Ox 100% ; me1 15:27 BP 135 / 74; Pulse 74; Resp 17; Temp 99.4; Pulse Ox 97% ; me1 12:31 Body Mass Index 37.93 (106.59 kg, 167.64 cm) ap3 12:31 Pain Scale: Adult ap3 MDM: 12:35 Medical Screening Exam initiated sb4 15:10 Data reviewed: vital signs, nurses notes, lab test result(s), and as a result, I will sb4 discharge patient. Counseling: I had a detailed discussion with the patient and/or guardian regarding the historical points, exam findings, and any diagnostic results supporting the discharge/admit diagnosis, lab results, radiology results, the need for outpatient follow up, for definitive care, to return to the emergency department if symptoms worsen or persist or if there are any questions or concerns that arise at home. 07/07 12:41 Order name: SARS RAPID; Complete Time: 15:01 sb4 07/07 12:41 Order name: Chest Pa And Lat (2 Views) XRAY; Complete Time: 14:30 sb4 Administered Medications: 14:46 Drug: Acetaminophen PO 1000 mg PO once Route: PO; me1 15:27 Follow up: Response: No adverse reaction; Temperature is decreased me1 14:46 Drug: DuoNeb Nebulize (3:1) (2.5 mg - 0.5 mg) 3 ml Nebulizer once Route: Nebulizer; me1 15:03 Follow up: Response: No adverse reaction; Wheezing diminished me1 15:27 Follow up: Response: No adverse reaction; Wheezing diminished me1 Disposition: 16:31 Co-signature as Attending Physician, Ab Taylor MD I reviewed the patient's care rn provided by the Advanced Practice Provider and agree with the diagnosis and treatment plan. Disposition Summary: 07/07/24 15:10 Discharge Ordered Notes: Location: Home sb4 Problem: new sb4 Symptoms: have improved sb4 Condition: Stable sb4 Diagnosis - Acute upper respiratory infection, unspecified sb4 Followup: sb4 - With: Emergency Department - When: As needed - Reason: Trouble breathing, Worsening of condition Discharge Instructions: - Discharge Summary Sheet sb4 - Upper Respiratory Infection, Adult, Owud-mc-Yerl sb4 - Viral Respiratory Infection, [id number] sb4 Forms: - Work release form sb4 - Patient Portal Instructions sb4 - Leadership Thank You Letter sb4 Prescriptions: - albuterol sulfate 90 mcg/actuation Inhalation HFA Aerosol Inhaler - inhale 1 puff INHALATION route every 4 to 6 hours as needed for shortness of sb4 breath or wheezing; 1 Applicator; Refills: 0, Product Selection Permitted - Prednisone 20 mg Oral Tablet - take 1 tablet ORAL route every 12 hours for 5 days; 10 tablet; Refills: 0, sb4 Product Selection Permitted Signatures: Dispatcher [employer] Ab Mccabe MD MD rn Prokisch, Amanda RN RN ap3 April Godinez PAAnalyC PA-C sb4 Sejal Paulson RN RN me1 Corrections: (The following items were deleted from the chart) 12:41 12:41 Chest Pa And Lat (2 Views)+[email or web address] ordered. EDCT EDMS 13:16 13:15 . sb4 sb4
[2024-07-07 17:38] VITALS: BP 135/74; TEMP 99.4; O2SAT 97
== END 2024-07-07 15:28 | disposition home or self-care (01) ==
LOC: ER 11:21
DX: J06.9 Acute upper respiratory infection, unspecified (principal); F17.210 Nicotine dependence, cigarettes, uncomplicated; Z11.52 Encounter for screening for COVID-19
CPT/HCPCS: 36415; 71046; 87426; J7613; J7644; 99284